=== PATIENT | male | born 1940 | race African-American/Black ===

== ENCOUNTER 2018-02-27 03:12 | Inpatient (IN) ==
[2018-02-27] MEDS ORDERED: Aspirin 325 MG Tablet PO ONE (03:57)
--- NOTE | 2018-02-27 04:02 | ED ---
HPI General Chief Complaint: Chest Pain Stated Complaint: Chest pain Time Seen by Provider: 02/27/18 03:51 Source: patient Mode of arrival: ambulatory Limitations: no limitations History of Present Illness HPI narrative: 77-year-old male patient with history of hypertension, high cholesterol, diabetes, presents to the ER today because of 1 day history of substernal chest pains which she currently rates at a 7 out of 10. He has been nauseous, throwing up twice. He feels like it is pressure-like. He does not know of any exacerbating alleviating factors. He has not had similar chest pain in the past. He denies any coughing, shortness of breath, fevers, diarrhea , abdominal pain, or any other symptoms. Complete Quality Measures for STEMI Alert Patients Related Data Home Medications Medication Instructions Recorded Confirmed Vitamin D3 1,000 unit PO DAILY 02/27/18 02/27/18 allopurinol 150 mg PO DAILY 02/27/18 02/27/18 amlodipine 10 mg PO DAILY 02/27/18 02/27/18 aspirin [Aspirin Low Dose] 81 mg PO EVERY OTHER DAY 02/27/18 02/27/18 calcitriol 0.25 mcg PO DAILY 02/27/18 02/27/18 doxazosin 4 mg PO DAILY 02/27/18 02/27/18 doxazosin 8 mg PO HS 02/27/18 02/27/18 finasteride 5 mg PO DAILY 02/27/18 02/27/18 furosemide 20 mg EVERY OTHER DAY 02/27/18 02/27/18 hydralazine 25 mg PO BID 02/27/18 02/27/18 insulin detemir U-100 [Levemir 12 unit SUB-Q QPM 02/27/18 02/27/18 U-100 Insulin] nateglinide 120 mg PO TID 02/27/18 02/27/18 nebivolol [Bystolic] 10 mg PO DAILY 02/27/18 02/27/18 pravastatin 20 mg PO HS 02/27/18 02/27/18 Allergies Allergy/AdvReac Type Severity Reaction Status Date / Time No Known Allergies Allergy Uncoded 04/09/14 20:25 Review of Systems ROS Unobtainable All other systems reviewed negative except as stated in HPI [facility] Medical History Medical History Diabetes (Acute) High cholesterol (Acute) Hypertension (Acute) Prostate cancer (Acute) Social History Social History Substance History: No History of Abuse Smoking Status: Never smoker How Often Do You Have a Drink Containing Alcohol: Never Recent Travel in [facility] within the Last 8 Weeks: No Recent Out of Country Travel within the Last 8 Weeks: No Immunization History Tetanus Immunization: Unable to Assess Hx Influenza Vaccine This Season: No Exam Narrative Exam Narrative: GENERAL: Well-developed elderly -[place]ian male patient currently in moderate distress distress. Awake and oriented 3. SKIN: Focused skin assessment warm/dry. HEAD: Atraumatic. Normocephalic. EYES: Pupils equal and round. No scleral icterus. No injection or drainage. ENT: No nasal bleeding or discharge. Mucous membranes pink and moist. NECK: Trachea midline. No JVD. CARDIOVASCULAR: Regular rate and rhythm. No murmur appreciated. RESPIRATORY: No accessory muscle use. Clear to auscultation. Breath sounds equal bilaterally. GASTROINTESTINAL: Abdomen soft, non-tender, nondistended. Hepatic and splenic margins not palpable. MUSCULOSKELETAL: No obvious deformities. No clubbing. No cyanosis. No edema. NEUROLOGICAL: Awake and alert. No obvious cranial nerve deficits. Motor grossly within normal limits. Normal speech. PSYCHIATRIC: Appropriate mood and affect; insight and judgment normal. Course Hospital Course: Patient's EKG did not show signs of acute ST changes. He has significant elevations in BUN and creatinine, troponin is mildly elevated as well, BNP is 1400 concerning for fluid overload. At this point, my plan would be to admit him for further treatment of his fluid overload. He was given nitroglycerin and aspirin in the ER with improvement in his chest discomfort. Case is discussed with Dr. Magaña for admission. Initial Documented Vital Signs Temperature 98.4 F 02/27/18 03:14 Pulse Rate 69 02/27/18 03:14 Respiratory Rate 18 02/27/18 03:14 Blood Pressure 159/74 H 02/27/18 03:14 Pulse Oximetry 98 02/27/18 03:14 Last Documented Vital Signs Temperature 98.8 F 02/27/18 03:18 Pulse Rate 64 02/27/18 04:07 Respiratory Rate 18 02/27/18 03:18 Blood Pressure 175/79 H 02/27/18 03:18 Pulse Oximetry 96 02/27/18 04:49 Medical Decision Making Lab Data Result diagrams: 02/27/18 03:50 02/27/18 03:50 Lab Results 02/27/18 02/27/18 02/27/18 Range/Units 03:50 03:50 03:50 WBC 6.1 (4.0-11.0) th/mm3 RBC 3.78 L (4.50-5.90) mil/mm3 Hgb 9.1 L (13.0-17.0) gm/dL Hct 28.5 L (39.0-51.0) % MCV 75.3 L (80.0-100.0) fL MCH 24.1 L (27.0-34.0) pg MCHC 32.0 (32.0-36.0) % RDW 18.7 H (11.6-17.2) % Plt Count 179 (150-450) th/mm3 MPV 11.1 H (7.0-11.0) fL Prelim Diff (Auto) Slide review pending Neut % (Auto) 77.6 H (16.0-70.0) % Lymph % (Auto) 12.1 (9.0-44.0) % [place] % (Auto) 8.6 H (0.0-8.0) % Eos % (Auto) 1.1 (0.0-4.0) % Baso % (Auto) 0.6 (0.0-2.0) % Neut # (Auto) 4.7 (1.8-7.7) th/mm3 Lymph # (Auto) 0.7 L (1.0-4.8) th/mm3 [place] # (Auto) 0.5 (0.0-0.9) th/mm3 Eos # (Auto) 0.1 (0.0-0.4) th/mm3 Baso # (Auto) 0.0 (0.0-0.2) th/mm3 WBC Differential . Diff Scan Auto diff confirmed Differential Comment . Platelet Estimate Normal (Normal) Platelet Morphology Normal (Normal) Ovalocytes 1+ H (None) Acanthocytes (Spur) 1+ H (None) Keratocytes Occ H (None) PT 10.9 (9.8-11.6) sec INR 1.1 Ratio APTT 23.2 L (24.3-30.1) sec Sodium (136-145) meq/L Potassium (3.5-5.1) meq/L Chloride (98-107) meq/L Carbon Dioxide (21.0-32.0) meq/L Anion Gap (5-15) meq/L BUN (7-18) mg/dL Creatinine (0.60-1.30) mg/dL Estimated GFR (>89) mL/min Random Glucose (74-106) mg/dL Calcium (8.5-10.1) mg/dL Magnesium (1.5-2.5) mg/dL Total Bilirubin (0.2-1.0) mg/dL AST (15-37) U/L ALT (12-78) U/L Alkaline Phosphatase (45-117) U/L Troponin I (0.02-0.05) ng/mL B-Natriuretic Peptide 1471 H (0-100) pg/mL Total Protein (6.4-8.2) g/dL Albumin (3.4-5.0) g/dL Lipase (73-393) U/L 02/27/18 Range/Units 03:50 WBC (4.0-11.0) th/mm3 RBC (4.50-5.90) mil/mm3 Hgb (13.0-17.0) gm/dL Hct (39.0-51.0) % MCV (80.0-100.0) fL MCH (27.0-34.0) pg MCHC (32.0-36.0) % RDW (11.6-17.2) % Plt Count (150-450) th/mm3 MPV (7.0-11.0) fL Prelim Diff (Auto) Neut % (Auto) (16.0-70.0) % Lymph % (Auto) (9.0-44.0) % [place] % (Auto) (0.0-8.0) % Eos % (Auto) (0.0-4.0) % Baso % (Auto) (0.0-2.0) % Neut # (Auto) (1.8-7.7) th/mm3 Lymph # (Auto) (1.0-4.8) th/mm3 [place] # (Auto) (0.0-0.9) th/mm3 Eos # (Auto) (0.0-0.4) th/mm3 Baso # (Auto) (0.0-0.2) th/mm3 WBC Differential Diff Scan Differential Comment Platelet Estimate (Normal) Platelet Morphology (Normal) Ovalocytes (None) Acanthocytes (Spur) (None) Keratocytes (None) PT (9.8-11.6) sec INR Ratio APTT (24.3-30.1) sec Sodium 142 (136-145) meq/L Potassium 4.5 (3.5-5.1) meq/L Chloride 109 H (98-107) meq/L Carbon Dioxide 19.2 L (21.0-32.0) meq/L Anion Gap 14 (5-15) meq/L BUN 76 H (7-18) mg/dL Creatinine 5.19 H (0.60-1.30) mg/dL Estimated GFR 13 L (>89) mL/min Random Glucose 127 H (74-106) mg/dL Calcium 8.4 L (8.5-10.1) mg/dL Magnesium 2.5 (1.5-2.5) mg/dL Total Bilirubin 0.4 (0.2-1.0) mg/dL AST 28 (15-37) U/L ALT 26 (12-78) U/L Alkaline Phosphatase 77 (45-117) U/L Troponin I 0.20 H (0.02-0.05) ng/mL B-Natriuretic Peptide (0-100) pg/mL Total Protein 7.5 (6.4-8.2) g/dL Albumin 3.2 L (3.4-5.0) g/dL Lipase 226 (73-393) U/L Imaging Data Radiologist's impression: ITS Impressions Chest X-Ray 02/27/18 03:57 CONCLUSION: Cardiomegaly with probable interstitial edema and small bilateral pleural effusions. No pneumothorax. Discharge Plan Discharge Disposition Patient Disposition: 30 Still Patient Discharge Details Discharge Problem: Acute renal failure, Elevated troponin, CHF (congestive heart failure) Physicians Team ED Provider: Carlos Rothman Primary Care Provider: Primary Care Physici,Priyanka Rxs /Orders / Referrals /Forms Prescriptions: No Action insulin detemir U-100 [Levemir U-100 Insulin] 100 unit/mL Solution 12 unit SUB-Q QPM RF: 0 nateglinide 120 mg Tablet 120 mg PO TID RF: 0 hydralazine 25 mg Tablet 25 mg PO BID RF: 0 aspirin [Aspirin Low Dose] 81 mg Tablet,Delayed Release (Dr/Ec) 81 mg PO EVERY OTHER DAY RF: 0 amlodipine 10 mg Tablet 10 mg PO DAILY RF: 0 doxazosin 4 mg Tablet 8 mg PO HS RF: 0 doxazosin 4 mg Tablet 4 mg PO DAILY RF: 0 allopurinol 300 mg Tablet 150 mg PO DAILY RF: 0 pravastatin 20 mg Tablet 20 mg PO HS RF: 0 furosemide 20 mg Tablet 20 mg EVERY OTHER DAY RF: 0 calcitriol 0.25 mcg Capsule 0.25 mcg PO DAILY RF: 0 finasteride 5 mg Tablet 5 mg PO DAILY RF: 0 nebivolol [Bystolic] 10 mg Tablet 10 mg PO DAILY RF: 0 Vitamin D3 1,000 unit PO DAILY RF: 0 Discharge Instructions Patient Printed Instructions: Chest Pain (ED) Discharge Interventions Interventions: Vital Signs Last Done: 02/27/18 03:18 Status ED Status: With Doctor
[2018-02-27 04:18] LABS: Baso % (Auto) 0.6 % (0.0-2.0); Eos # (Auto) 0.1 th/mm3 (0.0-0.4); Eos % (Auto) 1.1 % (0.0-4.0); Hematocrit 28.5 % (39.0-51.0); Hemoglobin 9.1 gm/dL (13.0-17.0); Lymph # (Auto) 0.7 th/mm3 (1.0-4.8); Lymph % (Auto) 12.1 % (9.0-44.0); Mean Corpuscular Hemoglobin 24.1 pg (27.0-34.0); Mean Corpuscular Volume 75.3 fL (80.0-100.0); Mean Platelet Volume 11.1 fL (7.0-11.0); Mono # (Auto) 0.5 th/mm3 (0.0-0.9); Mono % (Auto) 8.6 % (0.0-8.0); Neut # (Auto) 4.7 th/mm3 (1.8-7.7); Neut % (Auto) 77.6 % (16.0-70.0); Platelet Count 179 th/mm3 (150-450); Red Blood Count 3.78 mil/mm3 (4.50-5.90); Red Cell Distribution Width 18.7 % (11.6-17.2); White Blood Count 6.1 th/mm3 (4.0-11.0)
[2018-02-27 04:28] LABS: Activated Partial Thrombo Time 23.2 sec (24.3-30.1); INR 1.1 Ratio; Prothrombin Time 10.9 sec (9.8-11.6)
--- NOTE | 2018-02-27 04:35 | XR ---
EXAM DATE: 02/27/2018 4:32 AM EDT AGE/SEX: 77 years / Male INDICATIONS: Mid sternal pain radiating to left chest and arm. CLINICAL DATA: This is the patient's initial encounter. Patient reports that signs and symptoms have been present for 1 day and indicates a pain score of 8/10. MEDICAL/SURGICAL HISTORY: None. None. COMPARISON: No prior exams available for comparison. FINDINGS: Heart size enlarged. No focal consolidation. Small effusions. Interstitial prominence may represent m ild edema. CONCLUSION: Cardiomegaly with probable interstitial edema and small bilateral pleural effusions. No pneumothorax. Electronically signed by: Jose Carlos Patton MD 02/27/2018 4:34 AM EDT
[2018-02-27 04:47] LABS: Alkaline Phosphatase 77 U/L (45-117); Total Protein 7.5 g/dL (6.4-8.2)
[2018-02-27 04:55] LABS: Alanine Aminotransferase 26 U/L (12-78); Albumin 3.2 g/dL (3.4-5.0); Anion Gap 14 meq/L (5-15); Aspartate Aminotransferase 28 U/L (15-37); Blood Urea Nitrogen 76 mg/dL (7-18); Calcium 8.4 mg/dL (8.5-10.1); Carbon Dioxide 19.2 meq/L (21.0-32.0); Chloride 109 meq/L (98-107); Glomerular Filtration Rate 13 mL/min (>89); Glucose,Random 127 mg/dL (74-106); Lipase 226 U/L (73-393); Magnesium 2.5 mg/dL (1.5-2.5); Sodium 142 meq/L (136-145)
[2018-02-27 05:04] LABS: Potassium 4.5 meq/L (3.5-5.1)
[2018-02-27 05:24] LABS: Acanthocytes 1+
[2018-02-27 05:25] LABS: Ovalocytes 1+; Platelet Estimate Normal (Normal); Platelet Morphology Normal (Normal)
[2018-02-27] MEDS ORDERED: Acetaminophen 500 MG Tablet PO PRN (06:04)
[2018-02-27] MEDS ORDERED: Morphine Inj 4 MG/ML Vial IV.PUSH PRN (06:04)
[2018-02-27] MEDS: Heparin - SQ 10,000 UNITS/ML Vial SQ SCH ×2 (06:28→14:21)
[2018-02-27] MEDS: Aspirin 325 MG Tablet PO SCH (12:42)
[2018-02-27 13:08] LABS: % Iron Saturation 20.8 % (20-50)
--- NOTE | 2018-02-27 13:14 | P.HP ---
History of Present Illness Primary Care Physician: Dr. Varner Chief Complaint: leg swelling, shortness of breath, with chest pain History of Present Illness: patient is a 77 years old male with known history of DM type 2 insulin requirinf, Nephropathy, hypertesnion, nhyperlipdemia, CHF who woke up from sleep this 2 am with left sided chest pain- described as pressure like lasted till he arrived to ER- - patient was given ASa, SL NTG, and topical nitrates and IV Morphine with relief. Per patient increase shortness of bfrreath for past few days and leg swelling in past 1 week , He was On lasix 20 mg daily as OP and this was decreased to every other day about 4 weeks ago by nephrology becausee his creatinine was increasing as OP. - last creatinine was 4.6 then Denies any fever or chills, states still voiding with no difficulties, mikayla any diarrhea, baseline 2 pillow orthopnea. Now is chest pain free, appears comfortable, on exam with Leg swelling and few bibasal rales - Diagnosis (1) Acute renal failure (2) CHF (congestive heart failure) (3) NSTEMI (non-ST elevated myocardial infarction) (4) DM II (diabetes mellitus, type II), controlled - Inpatient Certification If this patient has been admitted as an Inpatient: I certify that the inpatient services were ordered in accordance with Medicare regulations governing the order. This includes certification that hospital inpatient services are reasonable and necessary and in the case of services not specified as inpatient-only under 42 CFR 419.22(n), that they are appropriately provided as inpatient services in accordance to with the 2-midnight benchmark under 43 CFR 412.3(e) Estimated Total Length of Stay (Days): 2 Plans for Post Hospital Care: Not yet determined Review of Systems All other systems reviewed negative except as stated in HPI PMFSH - History History Provided By: Patient, Family Member - Medical History Medical History: Medical History (Last Updated 02/27/18 @ 13:40 by Tahmina Miranda MD) Chronic renal insufficiency, stage III (moderate) Diabetes High cholesterol Hypertension Prostate cancer - Family History Family History: Family History (Last Updated 02/27/18 @ 13:40 by Tahmina Miranda MD) Other Family history of cancer - Tobacco History Smoking Status: Never smoker - Alcohol History How Often Do You Have a Drink Containing Alcohol: Never - Substance Use History Substance History: No History of Abuse - Travel History Recent Travel in the [place] Within the Last 8 Weeks: No Recent Travel Out of the Country Within the Last 8 Weeks: No - Immunization History Tetanus Immunization: Unable to Assess Hx Influenza Vaccine This Season: No Medications and Allergies Active Medications: Active Medications Acetaminophen (Tylenol) 500 mg PO Q4H PRN PRN Reason: HEADACHE Hydrocodone Bitart/Acetaminophen (Stark 7.5/325) 1 tab PO Q4H PRN PRN Reason: PAIN SCALE 1 TO 5 Aspirin (Aspirin) 325 mg PO DAILY [facility] Last Admin: 02/27/18 12:42 Dose: 325 mg Bumetanide (Bumex Inj) 2 mg IV.PUSH ONCE ONE Stop: 02/27/18 13:11 Heparin Sodium (Porcine) (Heparin Inj) 5,000 units SQ Q8H [facility] Last Admin: 02/27/18 06:28 Dose: 5,000 units Morphine Sulfate (Morphine Inj) 2 mg IV.PUSH Q5M PRN PRN Reason: PAIN SCALE 6 TO 10 Pantoprazole Sodium (Protonix) 40 mg PO DAILY [facility] Last Admin: 02/27/18 12:43 Dose: 40 mg Sodium Chloride (Ns Flush) 2 ml IV.FLUSH UNSCH PRN PRN Reason: FLUSH AFTER USING IV ACCESS Sodium Chloride (Ns Flush) 2 ml IV.FLUSH BID [facility] Last Admin: 02/27/18 12:43 Dose: 2 ml Sodium Chloride (Ns Flush) 2 ml IV.FLUSH PRN PRN PRN Reason: FLUSH AFTER USING IV ACCESS Allergies Allergy/AdvReac Type Severity Reaction Status Date / Time No Known Allergies Allergy Verified 03/01/18 06:38 Home Medications Medication Instructions Recorded Confirmed Type Vitamin D3 1,000 unit PO DAILY 02/27/18 02/27/18 History allopurinol 150 mg PO DAILY 02/27/18 02/27/18 History amlodipine 10 mg PO DAILY 02/27/18 02/27/18 History aspirin [Aspirin Low Dose] 81 mg PO EVERY OTHER DAY 02/27/18 02/27/18 History calcitriol 0.25 mcg PO DAILY 02/27/18 02/27/18 History doxazosin 4 mg PO DAILY 02/27/18 02/27/18 History doxazosin 8 mg PO HS 02/27/18 02/27/18 History finasteride 5 mg PO DAILY 02/27/18 02/27/18 History hydralazine 25 mg PO BID 02/27/18 02/27/18 History insulin detemir U-100 [Levemir 12 unit SUB-Q QPM 02/27/18 02/27/18 History U-100 Insulin] nateglinide 120 mg PO TID 02/27/18 02/27/18 History Exam Vital signs: Vital Signs 02/27/18 03:14 02/27/18 03:18 02/27/18 04:07 Temperature 98.4 F 98.8 F Pulse Rate 69 85 64 Respiratory Rate 18 18 Blood Pressure 159/74 H 175/79 H Pulse Oximetry 98 96 96 02/27/18 04:49 02/27/18 06:24 02/27/18 07:09 Temperature Pulse Rate 62 66 Respiratory Rate 18 19 Blood Pressure 170/78 H 170/78 H Pulse Oximetry 96 95 96 02/27/18 09:06 02/27/18 09:34 02/27/18 10:15 Temperature 98 F Pulse Rate 66 62 Respiratory Rate 17 20 Blood Pressure 166/77 H 166/77 H 172/79 H Pulse Oximetry 96 96 Intake & Output 02/26/18 02/27/18 02/27/18 18:59 06:59 18:59 Weight 83.915 kg - Constitutional no acute distress - Routine HEENT Exam Head: Present: normocephalic Eye: Present: EOMI, conjunctivae pink ENT: Present: mucous membranes moist, oropharynx clear - Routine Neck Exam Present: supple, full ROM, carotid bruit (no bruit) - Routine Respiratory Exam Present: rales (few basal rales, no wheezes) - Routine Cardiovascular Exam Present: RRR (no murmur) - Routine Abdominal Exam Present: soft, normoactive bowel sounds - Routine Extremities Exam Present: edema (+leg and feet edema) - Routine Skin Exam Present: intact - Routine Neurological Exam Present: alert, oriented X3, CN II-XII intact (motor 5/5 all extremities) Results - Labs CBC & Chem 7: 03/01/18 05:34 03/01/18 05:34 Labs: Laboratory Results - last 24 hr 02/27/18 02/27/18 02/27/18 03:50 03:50 03:50 WBC 6.1 RBC 3.78 L Hgb 9.1 L Hct 28.5 L MCV 75.3 L MCH 24.1 L MCHC 32.0 RDW 18.7 H Plt Count 179 MPV 11.1 H Prelim Diff (Auto) Slide review pending Neut % (Auto) 77.6 H Lymph % (Auto) 12.1 [place] % (Auto) 8.6 H Eos % (Auto) 1.1 Baso % (Auto) 0.6 Neut # (Auto) 4.7 Lymph # (Auto) 0.7 L [place] # (Auto) 0.5 Eos # (Auto) 0.1 Baso # (Auto) 0.0 WBC Differential . Diff Scan Auto diff confirmed Differential Comment . Platelet Estimate Normal Platelet Morphology Normal Ovalocytes 1+ H Acanthocytes (Spur) 1+ H Keratocytes Occ H PT 10.9 INR 1.1 APTT 23.2 L Sodium Potassium Chloride Carbon Dioxide Anion Gap BUN Creatinine Estimated GFR POC Glucose Random Glucose Calcium Magnesium Iron TIBC % Saturation Ferritin Total Bilirubin AST ALT Alkaline Phosphatase Troponin I B-Natriuretic Peptide 1471 H Total Protein Albumin Lipase 02/27/18 02/27/18 02/27/18 03:50 03:50 09:57 WBC RBC Hgb Hct MCV MCH MCHC RDW Plt Count MPV Prelim Diff (Auto) Neut % (Auto) Lymph % (Auto) [place] % (Auto) Eos % (Auto) Baso % (Auto) Neut # (Auto) Lymph # (Auto) [place] # (Auto) Eos # (Auto) Baso # (Auto) WBC Differential Diff Scan Differential Comment Platelet Estimate Platelet Morphology Ovalocytes Acanthocytes (Spur) Keratocytes PT INR APTT Sodium 142 Potassium 4.5 Chloride 109 H Carbon Dioxide 19.2 L Anion Gap 14 BUN 76 H Creatinine 5.19 H Estimated GFR 13 L POC Glucose 152 H Random Glucose 127 H Calcium 8.4 L Magnesium 2.5 Iron 44 L TIBC 211 L % Saturation 20.8 Ferritin 151 Total Bilirubin 0.4 AST 28 ALT 26 Alkaline Phosphatase 77 Troponin I 0.20 H B-Natriuretic Peptide Total Protein 7.5 Albumin 3.2 L Lipase 226 - Imaging Impressions Chest X-Ray 02/27/18 03:57 CONCLUSION: Cardiomegaly with probable interstitial edema and small bilateral pleural effusions. No pneumothorax. Caprini VTE Risk Assessment Caprini VTE Risk Assessment: Moderate/High Risk (score >= 2) Caprini Risk Assessment Model: Point Value = 1 Point Value = 2 Point Value = 3 Point Value = 5 Age 41-60 Minor surgery BMI > 25 kg/m2 Swollen legs Varicose veins or History of unexplained or recurrent spontaneous Oral contraceptives or hormone replacement Sepsis (< 1 month) Serious lung disease, including pneumonia (< 1 month) Abnormal pulmonary function Acute myocardial infarction Congestive heart failure (< 1 month) History of inflammatory bowel disease Medical patient at bed rest Age 61-74 Arthroscopic surgery Major open surgery (> 45 min) Laparoscopic surgery (> 45 min) Malignancy Confined to bed (> 72 hours) Immobilizing plaster cast Central venous access Age >= 75 History of VTE Family history of VTE Factor V Leiden Prothrombin [id number] Lupus anticoagulant Anticardiolipin antibodies Elevated serum homocysteine Heparin-induced thrombocytopenia Other congenital or acquired thrombophilia Stroke (< 1 month) Elective arthroplasty Hip, pelvis, or leg fracture Acute spinal cord injury (< 1 month) Prophylaxis Regimen: Total Risk Factor Score Risk Level Prophylaxis Regimen 0-1 Low Early ambulation 2 Moderate Order ONE of the following: *Sequential Compression Device (SCD) *Heparin 5000 units SQ BID 3-4 Higher Order ONE of the following medications: *Heparin 5000 units SQ TID *Enoxaparin/Lovenox 40 mg SQ daily (WT < 150 kg, CrCl > 30 mL/min) *Enoxaparin/Lovenox 30 mg SQ daily (WT < 150 kg, CrCl > 10-29 mL/min) *Enoxaparin/Lovenox 30 mg SQ BID (WT < 150 kg, CrCl > 30 mL/min) AND/OR *Sequential Compression Device (SCD) 5 or more Highest Order ONE of the following medications: *Heparin 5000 units SQ TID (Preferred with Epidurals) *Enoxaparin/Lovenox 40 mg SQ daily (WT < 150 kg, CrCl > 30 mL/min) *Enoxaparin/Lovenox 30 mg SQ daily (WT < 150 kg, CrCl > 10-29 mL/min) *Enoxaparin/Lovenox 30 mg SQ BID (WT < 150 kg, CrCl > 30 mL/min) AND *Sequential Compression Device (SCD) Assessment and Plan - Assessment (1) Acute renal failure Code(s): N17.9 - Acute kidney failure, unspecified Status: Acute (2) CHF (congestive heart failure) Code(s): I50.9 - Heart failure, unspecified Status: Acute (3) NSTEMI (non-ST elevated myocardial infarction) Code(s): I21.4 - Non-ST elevation (NSTEMI) myocardial infarction Status: Acute (4) DM II (diabetes mellitus, type II), controlled Code(s): E11.9 - Type 2 diabetes mellitus without complications Status: Chronic - Plan 77 years old male preented with Acute chest pain and shortness of breath- feeling better NSTEMI - troponin first set indeterminate 0.20 Acute CHF- from worsening renal functions Hypertension - trend troponin- if continues to increase - cardiology consult - Give Bumex 2 mg IV x 1 now then restart Lasix 20 mg daily in am with monitoring of renal fucntions in am - initial 12 LEKG shows no acute changes - get a 2D echo, check troponins as above - Amlodipine 10 mg tab daily, Hydralazine 25 mg bid, Bystolic 5 mg daily, vit D , Cardura - ASA daily , statins Acute Kidney injury likely with underlying CKI from Diabetic/hypertensive nephropathy - Nephrology consult - DM type 2, insulin requiring - sliding scale Gout- continue Allopurinol HLP- continue statins Anemia- likely of chronic renal disease - review old CBC- H and H near baseline - check iron studies - PPI once daily d/w patient and continue home meds Heparin SQ q 8 for DVT prophylaxis pm ADD: troponin 40. change BB to Lopressor 25 mg po q 8. Nitrol paste q 6 Cardiology consult change SQ heparin to heparin drip protocol Code Status: full Discussed Condition With: patient Discharge Planning: work up in progress (4) DM II (diabetes mellitus, type II), controlled Qualifiers: Diabetes mellitus buttermaker insulin use: with buttermaker use Chronic kidney disease stage: stage 5, not on chronic dialysis
--- NOTE | 2018-02-27 14:23 | MB ---
cc: Darnell Callahan MD DATE: 02/27/2018 REASON FOR CONSULTATION: Very high BUN and creatinine, for evaluation. HISTORY OF PRESENT ILLNESS: This is a 77-year-old male with past medical history of hypertension, diabetes mellitus, chronic kidney disease, hyperlipidemia, congestive heart failure, came to the hospital complaining of chest pain. I was called to see the patient because of elevated BUN and creatinine. The patient has a known history of chronic kidney disease. He has been following with Dr. Obinna Fiore and according to the , he was seen by him about 3-4 weeks ago, and at that time, his creatinine was 4.6. The patient now admitted here with a creatinine of 5.1. He started having this chest pain while he was sleeping at night and woke up around 2 a.m. The chest pain was mainly retrosternal and it improved when he came to the hospital, he was given some medication. He denies any nausea, vomiting. There was no shortness of breath. No palpitations. He did not have any chest pain since he came in here. He denies any history of dysuria, hematuria, not taking any nonsteroidal anti-inflammatory drugs. According to him, when he was seen by Dr. Obinna Fiore about 3-4 weeks ago, he was told that he will need dialysis at some point, but there is no urgent need. PAST MEDICAL HISTORY: Hypertension, diabetes mellitus, hyperlipidemia, history of prostate cancer, stage IV chronic kidney disease. REVIEW OF SYSTEMS: Denies any headache, dizziness. There is no history of fever. He has retrosternal chest pain, but is improved now. There is no shortness of breath. No nausea, vomiting. No history of diarrhea. No dysuria, hematuria, difficulty passing urine. SOCIAL HISTORY: The patient is . He has no history of smoking or alcoholism. FAMILY HISTORY: Noncontributory. ALLERGIES: HE HAS NO KNOWN DRUG ALLERGIES. MEDICATIONS: Currently, he is on following medications: 1. Tylenol p.r.n. 2. [place] p.r.n. 3. Aspirin 325 mg once a day. 4. Bumex 1 dose was given 2 mg. 5. IV Morphine. 6. Protonix 40 mg daily. 7. Zofran as needed. PHYSICAL EXAMINATION: GENERAL: Awake, alert. He is not in acute distress. VITAL SIGNS: Last blood pressure is 170/78, temperature is 98, oxygen saturation on room air is 95-96%. HEENT: Pupils are mid constricted. Nonicteric sclerae. Conjunctivae pale. NECK: Supple. JVD is not elevated. LUNGS: The patient has bilateral good air entry with occasional wheezing. HEART: S1, S2. Regular rate and rhythm. ABDOMEN: Soft and lax. There is no tenderness. Bowel sounds positive. EXTREMITIES: There is no pedal edema. LABORATORY DATA: WBC count is 6.1, hemoglobin 9.1, platelet count of 179, neutrophils 77.6%. INR is 1.1. Sodium 142, potassium 4.5, chloride 109, bicarbonate 19.2, BUN 76, creatinine 5.1, glucose 152, calcium 8.4, magnesium 2.4. Iron saturation is 20.8%. AST is 28, ALT is 26. Troponin 0.2. BNP is 1471. Total protein is 7.5, albumin is 3.2, lipase 226. ASSESSMENT AND PLAN: 1. Stage IV chronic kidney disease with some acute worsening. 2. Chest pain, rule out cardiac ischemia. 3. Hypertension. 4. Diabetes mellitus. 5. History of prostate cancer. 6. Hyperlipidemia. The patient has slightly elevated troponin of 0.2. He has advanced stage IV renal disease and there is some acute worsening, most likely has underlying hypertensive or diabetic nephropathy and the acute worsening could be related to cardiorenal syndrome. He has cardiomegaly and interstitial edema with bilateral pleural effusion. The patient got 1 dose of Bumex. Since patient has advanced renal disease, it is possible that he is approaching now end-stage and will need dialysis soon. We will need to see how much improvement he has with stabilization of his heart. There is no acute urgent need for dialysis at present. At present his potassium is normal and he is not uremic and he is passing urine. Avoid any nephrotoxins. Follow the renal function and Dr. Villalpando will follow the patient from tomorrow. Lakhwinder Callahan MD AQJ/TL , 01:50 PM , 02:21 PM
[2018-02-27 15:15] LABS: Creatine Kinase MB 43.8 ng/mL (0.5-3.6)
[2018-02-27 15:22] LABS: CKMB Percent 7.7 % (0.0-4.0)
--- NOTE | 2018-02-27 18:53 | P.PN ---
Subjective Interval history: NOT SEEN Physical Exam Vital signs: Vital Signs 02/27/18 03:14 02/27/18 03:18 02/27/18 04:07 Temperature 98.4 F 98.8 F Pulse Rate 69 85 64 Respiratory Rate 18 18 Blood Pressure 159/74 H 175/79 H Pulse Oximetry 98 96 96 02/27/18 04:49 02/27/18 06:24 02/27/18 07:09 Temperature Pulse Rate 62 66 Respiratory Rate 18 19 Blood Pressure 170/78 H 170/78 H Pulse Oximetry 96 95 96 02/27/18 09:06 02/27/18 09:34 02/27/18 10:15 Temperature 98 F Pulse Rate 66 62 Respiratory Rate 17 20 Blood Pressure 166/77 H 166/77 H 172/79 H Pulse Oximetry 96 96 02/27/18 12:00 Temperature 98 F Pulse Rate 65 Respiratory Rate 21 Blood Pressure 188/86 H Pulse Oximetry 97 Intake & Output 02/26/18 02/27/18 02/27/18 18:59 06:59 18:59 Weight 83.915 kg Narrative: - Constitutional no acute distress - Routine HEENT Exam Head: Present: normocephalic Eye: Present: EOMI, conjunctivae pink ENT: Present: mucous membranes moist, oropharynx clear - Routine Neck Exam Present: supple, full ROM, carotid bruit (no bruit) - Routine Respiratory Exam Present: rales (few basal rales, no wheezes) - Routine Cardiovascular Exam Present: RRR (no murmur) - Routine Abdominal Exam Present: soft, normoactive bowel sounds - Routine Extremities Exam Present: edema (+leg and feet edema) - Routine Skin Exam Present: intact - Routine Neurological Exam Present: alert, oriented X3, CN II-XII intact (motor 5/5 all extremities) Results - Labs CBC & Chem 7: 02/27/18 03:50 02/27/18 03:50 Laboratory Results - last 24 hr 02/27/18 02/27/18 02/27/18 03:50 03:50 03:50 WBC 6.1 RBC 3.78 L Hgb 9.1 L Hct 28.5 L MCV 75.3 L MCH 24.1 L MCHC 32.0 RDW 18.7 H Plt Count 179 MPV 11.1 H Prelim Diff (Auto) Slide review pending Neut % (Auto) 77.6 H Lymph % (Auto) 12.1 [place] % (Auto) 8.6 H Eos % (Auto) 1.1 Baso % (Auto) 0.6 Neut # (Auto) 4.7 Lymph # (Auto) 0.7 L [place] # (Auto) 0.5 Eos # (Auto) 0.1 Baso # (Auto) 0.0 WBC Differential . Diff Scan Auto diff confirmed Differential Comment . Platelet Estimate Normal Platelet Morphology Normal Ovalocytes 1+ H Acanthocytes (Spur) 1+ H Keratocytes Occ H PT 10.9 INR 1.1 APTT 23.2 L Sodium Potassium Chloride Carbon Dioxide Anion Gap BUN Creatinine Estimated GFR POC Glucose Random Glucose Calcium Magnesium Iron TIBC % Saturation Ferritin Total Bilirubin AST ALT Alkaline Phosphatase Total Creatine Kinase CK-MB (CK-2) CK-MB (CK-2) % Troponin I B-Natriuretic Peptide 1471 H Total Protein Albumin Lipase 02/27/18 02/27/18 02/27/18 03:50 03:50 09:57 WBC RBC Hgb Hct MCV MCH MCHC RDW Plt Count MPV Prelim Diff (Auto) Neut % (Auto) Lymph % (Auto) [place] % (Auto) Eos % (Auto) Baso % (Auto) Neut # (Auto) Lymph # (Auto) [place] # (Auto) Eos # (Auto) Baso # (Auto) WBC Differential Diff Scan Differential Comment Platelet Estimate Platelet Morphology Ovalocytes Acanthocytes (Spur) Keratocytes PT INR APTT Sodium 142 Potassium 4.5 Chloride 109 H Carbon Dioxide 19.2 L Anion Gap 14 BUN 76 H Creatinine 5.19 H Estimated GFR 13 L POC Glucose 152 H Random Glucose 127 H Calcium 8.4 L Magnesium 2.5 Iron 44 L TIBC 211 L % Saturation 20.8 Ferritin 151 Total Bilirubin 0.4 AST 28 ALT 26 Alkaline Phosphatase 77 Total Creatine Kinase CK-MB (CK-2) CK-MB (CK-2) % Troponin I 0.20 H B-Natriuretic Peptide Total Protein 7.5 Albumin 3.2 L Lipase 226 02/27/18 02/27/18 12:55 12:55 WBC RBC Hgb Hct MCV MCH MCHC RDW Plt Count MPV Prelim Diff (Auto) Neut % (Auto) Lymph % (Auto) [place] % (Auto) Eos % (Auto) Baso % (Auto) Neut # (Auto) Lymph # (Auto) [place] # (Auto) Eos # (Auto) Baso # (Auto) WBC Differential Diff Scan Differential Comment Platelet Estimate Platelet Morphology Ovalocytes Acanthocytes (Spur) Keratocytes PT INR APTT Sodium Potassium Chloride Carbon Dioxide Anion Gap BUN Creatinine Estimated GFR POC Glucose Random Glucose Calcium Magnesium Iron TIBC % Saturation Ferritin Total Bilirubin AST ALT Alkaline Phosphatase Total Creatine Kinase 572 H CK-MB (CK-2) 43.8 H CK-MB (CK-2) % 7.7 H* Troponin I Greater than 40.00 H* B-Natriuretic Peptide Total Protein Albumin Lipase - Imaging Impressions Chest X-Ray 02/27/18 03:57 CONCLUSION: Cardiomegaly with probable interstitial edema and small bilateral pleural effusions. No pneumothorax. 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
[2018-02-27] MEDS ORDERED: Dextrose 50% in Water 50 ML Vial IV.PUSH PRN (19:01)
[2018-02-27] MEDS: Metoprolol Tartrate 25 MG Tablet PO SCH (19:24)
[2018-02-27] MEDS ORDERED: Heparin 10,000 UNITS/10 ML Vial (for IV use) IV.PUSH STA (20:49)
[2018-02-27] MEDS: Heparin Drip 25,000 UNIT/250 ML BAG IV.CONT PRN (22:00)
[2018-02-27] MEDS: Doxazosin 4 MG Tablet PO SCH (22:04)
[2018-02-27] MEDS: hydrALAZINE 25 MG Tablet PO SCH (22:05)
[2018-02-27] MEDS: Insulin NovoLOG Aspart Correctional Sugar Inj SQ SCH (23:10)
[2018-02-27] MEDS: amLODIPine 10 MG Tablet PO SCH (23:10)
--- NOTE | 2018-02-28 00:10 | ECG ---
Date Performed: 02/27/2018 Time Performed: 03:25:25 PTAGE: 77 years EKG: Sinus rhythm BORDERLINE LEFT AXIS DEVIATION NONSPECIFIC ST & T-WAVE ABNORMALITY BORDERLINE ECG PREVIOUS TRACING : 06/29/2015 02.23 Since the previous tracing, no significant change noted DOCTOR: Chris Higgins Interpretating Date/Time 02/28/2018 00:09:41
[2018-02-28] MEDS: Heparin Drip 25,000 UNIT/250 ML BAG IV.CONT PRN (06:44)
[2018-02-28 07:03] LABS: Baso % (Auto) 0.3 % (0.0-2.0); Eos % (Auto) 0.4 % (0.0-4.0); Hematocrit 26.3 % (39.0-51.0); Hemoglobin 8.6 gm/dL (13.0-17.0); Lymph # (Auto) 0.6 th/mm3 (1.0-4.8); Lymph % (Auto) 9.1 % (9.0-44.0); Mean Corpuscular HGB Conc 32.8 % (32.0-36.0); Mean Corpuscular Hemoglobin 24.6 pg (27.0-34.0); Mono # (Auto) 0.5 th/mm3 (0.0-0.9); Mono % (Auto) 8.1 % (0.0-8.0); Neut # (Auto) 5.1 th/mm3 (1.8-7.7); Neut % (Auto) 82.1 % (16.0-70.0); Platelet Count 168 th/mm3 (150-450); Red Cell Distribution Width 18.4 % (11.6-17.2); White Blood Count 6.2 th/mm3 (4.0-11.0)
[2018-02-28 07:40] LABS: Calcium 8.4 mg/dL (8.5-10.1); Potassium 4.1 meq/L (3.5-5.1)
[2018-02-28 07:43] LABS: Chol/HDL Ratio 1.84 Ratio; HDL Cholesterol 65.7 mg/dL (40.0-60.0)
[2018-02-28] MEDS: Insulin NovoLOG Aspart Correctional Sugar Inj SQ SCH ×4 (08:00→21:01)
[2018-02-28] MEDS: Aspirin 325 MG Tablet PO SCH (08:48)
[2018-02-28] MEDS: amLODIPine 10 MG Tablet PO SCH (08:49)
[2018-02-28] MEDS: Calcitriol 0.25 MCG Capsule PO SCH (08:49)
[2018-02-28] MEDS: hydrALAZINE 25 MG Tablet PO SCH ×2 (08:49→21:00)
[2018-02-28] MEDS: Allopurinol 100 MG Tablet PO SCH (08:49)
[2018-02-28] MEDS: Finasteride 5 MG Tablet PO SCH (08:49)
[2018-02-28] MEDS: Metoprolol Tartrate 25 MG Tablet PO SCH ×3 (08:50→17:48)
[2018-02-28] MEDS: Doxazosin 4 MG Tablet PO SCH ×2 (08:50→21:03)
--- NOTE | 2018-02-28 08:56 | P.PN ---
Subjective Interval history: Follow-up [place]. Troponin peaked to over 40. Started on heparin drip. Denies chest pain agrees to proceed with left heart catheterization aware rates of worsening renal failure requiring hemodialysis. Seen with eldest daughter Alana Physical Exam Vital signs: Vital Signs 02/27/18 09:06 02/27/18 09:34 02/27/18 10:15 Temperature 98 F Pulse Rate 66 62 Respiratory Rate 17 20 Blood Pressure 166/77 H 166/77 H 172/79 H Pulse Oximetry 96 96 02/27/18 12:00 02/27/18 19:00 02/27/18 19:18 Temperature 98 F 98.2 F Pulse Rate 65 69 65 Respiratory Rate 21 18 Blood Pressure 188/86 H 170/82 H Pulse Oximetry 97 97 02/27/18 20:00 02/27/18 21:00 02/27/18 22:00 Temperature 98.8 F Pulse Rate 68 68 76 Respiratory Rate 16 Blood Pressure 159/84 H Pulse Oximetry 93 L 02/27/18 23:00 02/28/18 00:00 02/28/18 01:00 Temperature Pulse Rate 70 68 64 Respiratory Rate Blood Pressure Pulse Oximetry 02/28/18 02:00 02/28/18 03:00 02/28/18 04:00 Temperature Pulse Rate 64 66 64 Respiratory Rate 16 Blood Pressure 152/84 H Pulse Oximetry 96 Intake & Output 02/27/18 02/28/18 02/28/18 18:59 06:59 18:59 Intake Total 240 / 240 Output Total 600 / 600 Balance -360 / -360 Weight 83.7 kg Intake: Oral 240 / 240 Output: Urine 600 / 600 Other: Weight On Admission 84 kg Narrative: - Constitutional no acute distress - Routine HEENT Exam Head: Present: normocephalic Eye: Present: EOMI, conjunctivae pink ENT: Present: mucous membranes moist, oropharynx clear - Routine Neck Exam Present: supple, full ROM, carotid bruit (no bruit) - Routine Respiratory Exam Present: rales (few basal rales, no wheezes) - Routine Cardiovascular Exam Present: RRR (no murmur) - Routine Abdominal Exam Present: soft, normoactive bowel sounds - Routine Extremities Exam Present: edema (+leg and feet edema) - Routine Skin Exam Present: intact - Routine Neurological Exam Present: alert, oriented X3, CN II-XII intact (motor 5/5 all extremities) Results - Labs CBC & Chem 7: 02/28/18 04:57 02/28/18 04:57 Laboratory Results - last 24 hr 02/27/18 02/27/18 02/27/18 03:50 09:57 12:55 WBC RBC Hgb Hct MCV MCH MCHC RDW Plt Count MPV Neut % (Auto) Lymph % (Auto) [place] % (Auto) Eos % (Auto) Baso % (Auto) Neut # (Auto) Lymph # (Auto) [place] # (Auto) Eos # (Auto) Baso # (Auto) WBC Differential Differential Comment APTT Sodium Potassium Chloride Carbon Dioxide Anion Gap BUN Creatinine Estimated GFR POC Glucose 152 H Random Glucose Calcium Iron 44 L TIBC 211 L % Saturation 20.8 Ferritin 151 Total Creatine Kinase CK-MB (CK-2) CK-MB (CK-2) % Troponin I Greater than 40.00 H* Triglycerides Cholesterol LDL Cholesterol, Calc HDL Cholesterol Cholesterol/HDL Ratio 02/27/18 02/27/18 02/27/18 12:55 21:03 23:05 WBC RBC Hgb Hct MCV MCH MCHC RDW Plt Count MPV Neut % (Auto) Lymph % (Auto) [place] % (Auto) Eos % (Auto) Baso % (Auto) Neut # (Auto) Lymph # (Auto) [place] # (Auto) Eos # (Auto) Baso # (Auto) WBC Differential Differential Comment APTT Sodium Potassium Chloride Carbon Dioxide Anion Gap BUN Creatinine Estimated GFR POC Glucose 147 H Random Glucose Calcium Iron TIBC % Saturation Ferritin Total Creatine Kinase 572 H CK-MB (CK-2) 43.8 H CK-MB (CK-2) % 7.7 H* Troponin I 27.20 H* Triglycerides Cholesterol LDL Cholesterol, Calc HDL Cholesterol Cholesterol/HDL Ratio 02/28/18 02/28/18 02/28/18 04:57 04:57 04:57 WBC 6.2 RBC 3.50 L Hgb 8.6 L Hct 26.3 L MCV 75.0 L MCH 24.6 L MCHC 32.8 RDW 18.4 H Plt Count 168 MPV 11.0 Neut % (Auto) 82.1 H Lymph % (Auto) 9.1 [place] % (Auto) 8.1 H Eos % (Auto) 0.4 Baso % (Auto) 0.3 Neut # (Auto) 5.1 Lymph # (Auto) 0.6 L [place] # (Auto) 0.5 Eos # (Auto) 0.0 Baso # (Auto) 0.0 WBC Differential . Differential Comment Auto diff final APTT 69.0 H D Sodium 143 Potassium 4.1 Chloride 109 H Carbon Dioxide 22.0 Anion Gap 12 BUN 72 H Creatinine 5.10 H Estimated GFR 13 L POC Glucose Random Glucose 138 H Calcium 8.4 L Iron TIBC % Saturation Ferritin Total Creatine Kinase CK-MB (CK-2) CK-MB (CK-2) % Troponin I Triglycerides 39 L Cholesterol 121 LDL Cholesterol, Calc 48 HDL Cholesterol 65.7 H Cholesterol/HDL Ratio 1.84 02/28/18 08:27 WBC RBC Hgb Hct MCV MCH MCHC RDW Plt Count MPV Neut % (Auto) Lymph % (Auto) [place] % (Auto) Eos % (Auto) Baso % (Auto) Neut # (Auto) Lymph # (Auto) [place] # (Auto) Eos # (Auto) Baso # (Auto) WBC Differential Differential Comment APTT Sodium Potassium Chloride Carbon Dioxide Anion Gap BUN Creatinine Estimated GFR POC Glucose 132 H Random Glucose Calcium Iron TIBC % Saturation Ferritin Total Creatine Kinase CK-MB (CK-2) CK-MB (CK-2) % Troponin I Triglycerides Cholesterol LDL Cholesterol, Calc HDL Cholesterol Cholesterol/HDL Ratio - Imaging ITS Impressions Chest X-Ray 02/27/18 03:57 CONCLUSION: Cardiomegaly with probable interstitial edema and small bilateral pleural effusions. No pneumothorax. 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
[2018-02-28] MEDS ORDERED: Allopurinol 300 MG Tablet PO SCH (09:00)
--- NOTE | 2018-02-28 09:49 | P.CONCA ---
<Gabriel Diaz - Last Filed: 02/28/18 09:43> History of Present Illness Primary Care Provider: No Primary Care Physician Family Provider: Scott Varner MD Chief Complaint: leg swelling, shortness of breath, with chest pain History of Present Illness: 77-year-old male with a past medical history of HTN, HLD, DM, CKD stage V who presented for chest pain. Yesterday evening the patient was awoken from sleep with substernal chest pressure with associated nausea. No prior episodes of chest pain or heart disease in the past. He came to the ED for evaluation and EKGs have not revealed any ischemic changes. His initial troponin was 0.2 which elevated to 40. He states the chest pain lasted several hours until he came to the ED and was improved by medications given then. Currently chest pain -free. Patient does have advanced renal disease with most GFR 13 as outpatient and currently. His tail ripper, Dr. Fiore, has discussed possible dialysis in the future, but the patient still makes urine. The patient is seen with his at bedside and in conjunction with nephrology ARCHAEOLOGY PROFESSOR. The patient is agreeable for cardiac catheterization at this time and understands that he will need dialysis afterwards. Review of Systems All other systems reviewed negative except as stated in HPI PMFSH - History History Provided By: Patient, Family Member, Significant Other - Medical History Medical History: Medical History (Last Updated 02/27/18 @ 22:25 by Mercy Smith RN) Chronic renal insufficiency, stage III (moderate) Diabetes Onset Date: Unknown High cholesterol Onset Date: Unknown Hypertension Onset Date: Unknown Prostate cancer Onset Date: ~02/27/13 - Family History Family History: Family History (Last Reviewed 02/27/18 @ 17:09 by Zhanna Johnson RN) Other Family history of cancer - Tobacco History Second Hand Smoke Exposure: No Smoking Status: Never smoker - Alcohol History How Often Do You Have a Drink Containing Alcohol: Never - Substance Use History Substance History: No History of Abuse - Travel History Recent Travel in the [place] Within the Last 8 Weeks: No Recent Travel Out of the Country Within the Last 8 Weeks: No - Immunization History Tetanus Immunization: Unsure Hx Influenza Vaccine This Season: Yes Medications and Allergies Allergies Allergy/AdvReac Type Severity Reaction Status Date / Time No Known Allergies Allergy Uncoded 04/09/14 20:25 Home Medications Medication Instructions Recorded Confirmed Type Vitamin D3 1,000 unit PO DAILY 02/27/18 02/27/18 History allopurinol 150 mg PO DAILY 02/27/18 02/27/18 History amlodipine 10 mg PO DAILY 02/27/18 02/27/18 History aspirin [Aspirin Low Dose] 81 mg PO EVERY OTHER DAY 02/27/18 02/27/18 History calcitriol 0.25 mcg PO DAILY 02/27/18 02/27/18 History doxazosin 4 mg PO DAILY 02/27/18 02/27/18 History doxazosin 8 mg PO HS 02/27/18 02/27/18 History finasteride 5 mg PO DAILY 02/27/18 02/27/18 History furosemide 20 mg EVERY OTHER DAY 02/27/18 02/27/18 History hydralazine 25 mg PO BID 02/27/18 02/27/18 History insulin detemir U-100 [Levemir 12 unit SUB-Q QPM 02/27/18 02/27/18 History U-100 Insulin] nateglinide 120 mg PO TID 02/27/18 02/27/18 History nebivolol [Bystolic] 10 mg PO DAILY 02/27/18 02/27/18 History pravastatin 20 mg PO HS 02/27/18 02/27/18 History Active Medications: Active Medications Acetaminophen (Tylenol) 500 mg PO Q4H PRN PRN Reason: HEADACHE Hydrocodone Bitart/Acetaminophen (Valier 7.5/325) 1 tab PO Q4H PRN PRN Reason: PAIN SCALE 1 TO 5 Allopurinol (Zyloprim) 100 mg PO DAILY [facility] Last Admin: 02/28/18 08:49 Dose: 100 mg Amlodipine Besylate (Norvasc) 10 mg PO DAILY [facility] Last Admin: 02/28/18 08:49 Dose: 10 mg Aspirin (Aspirin) 325 mg PO DAILY [facility] Last Admin: 02/28/18 08:48 Dose: 325 mg Calcitriol (Rocaltrol) 0.25 mcg PO DAILY [facility] Last Admin: 02/28/18 08:49 Dose: 0.25 mcg Dextrose (D50w Vial) 50 ml IV.PUSH UNSCH PRN PRN Reason: PER HYPOGLYCEMIA PROTOCOL Doxazosin Mesylate (Cardura) 4 mg PO DAILY [facility] Last Admin: 02/28/18 08:50 Dose: 4 mg Doxazosin Mesylate (Cardura) 8 mg PO HS [facility] Last Admin: 02/27/18 22:04 Dose: 8 mg Finasteride (Proscar) 5 mg PO DAILY [facility] Last Admin: 02/28/18 08:49 Dose: 5 mg Glucagon (Glucagon Inj) 1 mg OTHER PRN PRN PRN Reason: for Hypoglycemia Protocol Hydralazine HCl (Apresoline) 25 mg PO BID [facility] Last Admin: 02/28/18 08:49 Dose: 25 mg Heparin Sodium/Dextrose (Heparin/D5w 25,000 U/250 Ml) 25,000 unit in 250 mls @ 10 mls/hr IV.CONT TITRATE PRN; Protocol PRN Reason: Per Protocol Last Admin: 02/27/18 22:00 Dose: 1,000 units/hr, 10 mls/hr Insulin Aspart (Novolog Insulin Suppl Scale Inj) 0 unit SQ ACHS [facility]; Protocol Last Admin: 02/27/18 23:10 Dose: Not Given Metoprolol Tartrate (Lopressor) 25 mg PO TID [facility] Last Admin: 02/28/18 08:50 Dose: 25 mg Morphine Sulfate (Morphine Inj) 2 mg IV.PUSH Q5M PRN PRN Reason: PAIN SCALE 6 TO 10 Nitroglycerin (Nitro-Bid 2% Oint) 1 inch TOPICAL Q6HR [facility] Last Admin: 02/28/18 06:13 Dose: 1 inch Pantoprazole Sodium (Protonix) 40 mg PO DAILY [facility] Last Admin: 02/28/18 08:49 Dose: 40 mg Pravastatin Sodium (Pravachol) 20 mg PO [facility] Last Admin: 02/27/18 22:05 Dose: 20 mg Sodium Chloride (Ns Flush) 2 ml IV.FLUSH UNSCH PRN PRN Reason: FLUSH AFTER USING IV ACCESS Sodium Chloride (Ns Flush) 2 ml IV.FLUSH BID [facility] Last Admin: 02/27/18 22:05 Dose: 2 ml Sodium Chloride (Ns Flush) 2 ml IV.FLUSH PRN PRN PRN Reason: FLUSH AFTER USING IV ACCESS Exam Vital signs: Vital Signs 02/27/18 10:15 02/27/18 12:00 02/27/18 19:00 Temperature 98 F 98 F Pulse Rate 62 65 69 Respiratory Rate 20 21 Blood Pressure 172/79 H 188/86 H Pulse Oximetry 96 97 02/27/18 19:18 02/27/18 20:00 02/27/18 21:00 Temperature 98.2 F 98.8 F Pulse Rate 65 68 68 Respiratory Rate 18 16 Blood Pressure 170/82 H 159/84 H Pulse Oximetry 97 93 L 02/27/18 22:00 02/27/18 23:00 02/28/18 00:00 Temperature Pulse Rate 76 70 68 Respiratory Rate Blood Pressure Pulse Oximetry 02/28/18 01:00 02/28/18 02:00 02/28/18 03:00 Temperature Pulse Rate 64 64 66 Respiratory Rate Blood Pressure Pulse Oximetry 02/28/18 04:00 02/28/18 09:31 Temperature 98 F Pulse Rate 64 71 Respiratory Rate 16 16 Blood Pressure 152/84 H 157/84 H Pulse Oximetry 96 95 Intake & Output 02/27/18 02/28/18 02/28/18 18:59 06:59 18:59 Intake Total 240 / 240 Output Total 600 / 600 Balance -360 / -360 Weight 184 lb 8.43 oz Intake: Oral 240 / 240 Output: Urine 600 / 600 Other: Weight On Admission 185 lb 3.013 oz Narrative: GENERAL: Well-developed well-nourished. In no acute distress. NECK: No carotid bruits. No JVD. CARDIOVASCULAR: Regular rate and rhythm. No murmur appreciated. RESPIRATORY: No accessory muscle use. Clear to auscultation. Breath sounds equal bilaterally. MUSCULOSKELETAL: No clubbing or cyanosis. No edema. NEUROLOGICAL: Awake and alert. Normal speech. Results 02/28/18 04:57 02/28/18 04:57 Cardiac Enzymes 02/27/18 02/27/18 02/27/18 Range/Units 12:55 12:55 23:05 CK-MB (CK-2) 43.8 H (0.5-3.6) ng/mL Troponin I Greater than 40.00 H* 27.20 H* (0.02-0.05) ng/mL Coagulation 02/28/18 Range/Units 04:57 APTT 69.0 H D (24.3-30.1) sec Lipids 02/28/18 Range/Units 04:57 Triglycerides 39 L (42-150) mg/dL Cholesterol 121 (120-200) mg/dL HDL Cholesterol 65.7 H (40.0-60.0) mg/dL Cholesterol/HDL Ratio 1.84 Ratio CBC 02/28/18 Range/Units 04:57 WBC 6.2 (4.0-11.0) th/mm3 RBC 3.50 L (4.50-5.90) mil/mm3 Hgb 8.6 L (13.0-17.0) gm/dL Hct 26.3 L (39.0-51.0) % Plt Count 168 (150-450) th/mm3 Neut # (Auto) 5.1 (1.8-7.7) th/mm3 Lymph # (Auto) 0.6 L (1.0-4.8) th/mm3 [facility] # (Auto) 0.5 (0.0-0.9) th/mm3 Eos # (Auto) 0.0 (0.0-0.4) th/mm3 Baso # (Auto) 0.0 (0.0-0.2) th/mm3 Comprehensive Metabolic Panel 02/28/18 Range/Units 04:57 Sodium 143 (136-145) meq/L Potassium 4.1 (3.5-5.1) meq/L Chloride 109 H (98-107) meq/L Carbon Dioxide 22.0 (21.0-32.0) meq/L BUN 72 H (7-18) mg/dL Creatinine 5.10 H (0.60-1.30) mg/dL Calcium 8.4 L (8.5-10.1) mg/dL Intake and Output 02/27/18 02/28/18 02/28/18 22:59 06:59 14:59 Intake Total 240 / 240 Output Total 600 / 600 Balance -360 / -360 Intake: Oral 240 / 240 Output: Urine 600 / 600 Other: Weight 185 lb 3.013 oz 184 lb 8.43 oz Weight On Admission 185 lb 3.013 oz Assessment and Plan - Plan 77-year-old male with a past medical history of HTN, HLD, DM, CKD stage V who presented for chest pain. Yesterday evening the patient was awoken from sleep with substernal chest pressure with associated nausea. No prior episodes of chest pain or heart disease in the past. He came to the ED for evaluation and EKGs have not revealed any ischemic changes. His initial troponin was 0.2 which elevated to 40. He states the chest pain lasted several hours until he came to the ED and was improved by medications given then. Currently chest pain -free. Patient does have advanced renal disease with most GFR 13 as outpatient and currently. His tail ripper, Dr. Fiore, has discussed possible dialysis in the future, but the patient still makes urine. The patient is seen with his at bedside and in conjunction with nephrology BARBARA. The patient is agreeable for cardiac catheterization at this time and understands that he will need dialysis afterwards. NSTEMI: Trop 0.2->40 ->27. Chest pain-free currently with Nitropaste and heparin GTT. N.p.o. for LHC today. CKD stage V: Nephrology on board, to have Vas-Cath placed today and dialysis after LHC. Discussed Condition With: Patient with at bedside, nephrology BARBARA, Dr. Manley <Ramon Manley - Last Filed: 02/28/18 14:31> History of Present Illness Primary Care Provider: No Primary Care Physician Family Provider: Scott Varner MD [facility] - Medical History Medical History: Medical History (Last Updated 02/27/18 @ 22:25 by Mercy Smith RN) Chronic renal insufficiency, stage III (moderate) Diabetes Onset Date: Unknown High cholesterol Onset Date: Unknown Hypertension Onset Date: Unknown Prostate cancer Onset Date: ~02/27/13 - Family History Family History: Family History (Last Reviewed 02/27/18 @ 17:09 by Zhanna Johnson RN) Other Family history of cancer Medications and Allergies Active Medications: Active Medications Acetaminophen (Tylenol) 500 mg PO Q4H PRN PRN Reason: HEADACHE Hydrocodone Bitart/Acetaminophen (Valier 7.5/325) 1 tab PO Q4H PRN PRN Reason: PAIN SCALE 1 TO 5 Allopurinol (Zyloprim) 100 mg PO DAILY [facility] Last Admin: 02/28/18 08:49 Dose: 100 mg Amlodipine Besylate (Norvasc) 10 mg PO DAILY [facility] Last Admin: 02/28/18 08:49 Dose: 10 mg Aspirin (Aspirin) 325 mg PO DAILY [facility] Last Admin: 02/28/18 08:48 Dose: 325 mg Calcitriol (Rocaltrol) 0.25 mcg PO DAILY [facility] Last Admin: 02/28/18 08:49 Dose: 0.25 mcg Dextrose (D50w Vial) 50 ml IV.PUSH UNSCH PRN PRN Reason: PER HYPOGLYCEMIA PROTOCOL Doxazosin Mesylate (Cardura) 4 mg PO DAILY [facility] Last Admin: 02/28/18 08:50 Dose: 4 mg Doxazosin Mesylate (Cardura) 8 mg PO HS [facility] Last Admin: 02/27/18 22:04 Dose: 8 mg Finasteride (Proscar) 5 mg PO DAILY [facility] Last Admin: 02/28/18 08:49 Dose: 5 mg Glucagon (Glucagon Inj) 1 mg OTHER PRN PRN PRN Reason: for Hypoglycemia Protocol Hydralazine HCl (Apresoline) 25 mg PO BID [facility] Last Admin: 02/28/18 08:49 Dose: 25 mg Heparin Sodium/Dextrose (Heparin/D5w 25,000 U/250 Ml) 25,000 unit in 250 mls @ 10 mls/hr IV.CONT TITRATE PRN; Protocol PRN Reason: Per Protocol Last Admin: 02/27/18 22:00 Dose: 1,000 units/hr, 10 mls/hr Dextrose (D10w Inj) 500 mls @ 15 mls/hr IV.CONT .Q24H [facility] Insulin Aspart (Novolog Insulin Suppl Scale Inj) 0 unit SQ ACHS [facility]; Protocol Last Admin: 02/28/18 12:49 Dose: Not Given Metoprolol Tartrate (Lopressor) 25 mg PO TID [facility] Last Admin: 02/28/18 12:55 Dose: 25 mg Morphine Sulfate (Morphine Inj) 2 mg IV.PUSH Q5M PRN PRN Reason: PAIN SCALE 6 TO 10 Nitroglycerin (Nitro-Bid 2% Oint) 1 inch TOPICAL Q6HR [facility] Last Admin: 02/28/18 12:56 Dose: 1 inch Pantoprazole Sodium (Protonix) 40 mg PO DAILY [facility] Last Admin: 02/28/18 08:49 Dose: 40 mg Pravastatin Sodium (Pravachol) 20 mg PO HS [facility] Last Admin: 02/27/18 22:05 Dose: 20 mg Sodium Chloride (Ns Flush) 2 ml IV.FLUSH UNSCH PRN PRN Reason: FLUSH AFTER USING IV ACCESS Sodium Chloride (Ns Flush) 2 ml IV.FLUSH BID [facility] Last Admin: 02/28/18 12:51 Dose: Not Given Sodium Chloride (Ns Flush) 2 ml IV.FLUSH PRN PRN PRN Reason: FLUSH AFTER USING IV ACCESS Exam Vital signs: Vital Signs 07/01/18 19:00 02/27/18 19:18 02/27/18 20:00 Temperature 98.2 F 98.8 F Pulse Rate 69 65 68 Respiratory Rate 18 16 Blood Pressure 170/82 H 159/84 H Pulse Oximetry 97 93 L 02/27/18 21:00 02/27/18 22:00 02/27/18 23:00 Temperature Pulse Rate 68 76 70 Respiratory Rate Blood Pressure Pulse Oximetry 02/28/18 00:00 02/28/18 01:00 02/28/18 02:00 Temperature Pulse Rate 68 64 64 Respiratory Rate Blood Pressure Pulse Oximetry 02/28/18 03:00 02/28/18 04:00 02/28/18 07:00 Temperature Pulse Rate 66 64 63 Respiratory Rate 16 Blood Pressure 152/84 H Pulse Oximetry 96 02/28/18 08:00 02/28/18 09:00 02/28/18 09:31 Temperature 98 F Pulse Rate 71 58 L 71 Respiratory Rate 16 Blood Pressure 157/84 H Pulse Oximetry 95 02/28/18 10:00 02/28/18 11:00 02/28/18 12:00 Temperature Pulse Rate 59 L 59 L 60 Respiratory Rate 16 Blood Pressure 145/74 H Pulse Oximetry 02/28/18 13:00 Temperature Pulse Rate 64 Respiratory Rate Blood Pressure Pulse Oximetry Intake & Output 02/27/18 02/28/18 02/28/18 18:59 06:59 18:59 Intake Total 240 / 240 Output Total 600 / 600 Balance -360 / -360 Weight 83.7 kg Intake: Oral 240 / 240 Output: Urine 600 / 600 Other: Weight On Admission 84 kg Results 02/28/18 04:57 02/28/18 04:57 Cardiac Enzymes 02/27/18 02/27/18 02/27/18 Range/Units 12:55 12:55 23:05 CK-MB (CK-2) 43.8 H (0.5-3.6) ng/mL Troponin I Greater than 40.00 H* 27.20 H* (0.02-0.05) ng/mL Coagulation 02/28/18 Range/Units 04:57 APTT 69.0 H D (24.3-30.1) sec Lipids 02/28/18 Range/Units 04:57 Triglycerides 39 L (42-150) mg/dL Cholesterol 121 (120-200) mg/dL HDL Cholesterol 65.7 H (40.0-60.0) mg/dL Cholesterol/HDL Ratio 1.84 Ratio CBC 02/28/18 Range/Units 04:57 WBC 6.2 (4.0-11.0) th/mm3 RBC 3.50 L (4.50-5.90) mil/mm3 Hgb 8.6 L (13.0-17.0) gm/dL Hct 26.3 L (39.0-51.0) % Plt Count 168 (150-450) th/mm3 Neut # (Auto) 5.1 (1.8-7.7) th/mm3 Lymph # (Auto) 0.6 L (1.0-4.8) th/mm3 [facility] # (Auto) 0.5 (0.0-0.9) th/mm3 Eos # (Auto) 0.0 (0.0-0.4) th/mm3 Baso # (Auto) 0.0 (0.0-0.2) th/mm3 Comprehensive Metabolic Panel 02/28/18 Range/Units 04:57 Sodium 143 (136-145) meq/L Potassium 4.1 (3.5-5.1) meq/L Chloride 109 H (98-107) meq/L Carbon Dioxide 22.0 (21.0-32.0) meq/L BUN 72 H (7-18) mg/dL Creatinine 5.10 H (0.60-1.30) mg/dL Calcium 8.4 L (8.5-10.1) mg/dL Intake and Output 02/27/18 02/28/18 02/28/18 22:59 06:59 14:59 Intake Total 240 / 240 Output Total 600 / 600 Balance -360 / -360 Intake: Oral 240 / 240 Output: Urine 600 / 600 Other: Weight 84 kg 83.7 kg Weight On Admission 84 kg Assessment and Plan - Attending Attestation NSTEMI LHC - mild nonobstructive CAD. vasospasm vs ruptured plaque. unclear medical mgt asa statin bb call with questions 30 cc total contrast administered. monitor Cr.
--- NOTE | 2018-02-28 10:41 | P.PNNP ---
Subjective Interval history: He is on heparin gtt, chest pain free. Renal function is stable, he is non oliguric. Pending plan from cardiology regarding possible cardiac catheterization. <Latasha Acosta - Last Filed: 02/28/18 10:32> Physical Exam Vital signs: Vital Signs 02/27/18 12:00 02/27/18 19:00 02/27/18 19:18 Temperature 98 F 98.2 F Pulse Rate 65 69 65 Respiratory Rate 21 18 Blood Pressure 188/86 H 170/82 H Pulse Oximetry 97 97 02/27/18 20:00 02/27/18 21:00 02/27/18 22:00 Temperature 98.8 F Pulse Rate 68 68 76 Respiratory Rate 16 Blood Pressure 159/84 H Pulse Oximetry 93 L 02/27/18 23:00 02/28/18 00:00 02/28/18 01:00 Temperature Pulse Rate 70 68 64 Respiratory Rate Blood Pressure Pulse Oximetry 02/28/18 02:00 02/28/18 03:00 02/28/18 04:00 Temperature Pulse Rate 64 66 64 Respiratory Rate 16 Blood Pressure 152/84 H Pulse Oximetry 96 02/28/18 07:00 02/28/18 08:00 02/28/18 09:00 Temperature Pulse Rate 63 71 58 L Respiratory Rate Blood Pressure Pulse Oximetry 02/28/18 09:31 Temperature 98 F Pulse Rate 71 Respiratory Rate 16 Blood Pressure 157/84 H Pulse Oximetry 95 Intake & Output 02/27/18 02/28/18 02/28/18 18:59 06:59 18:59 Intake Total 240 / 240 Output Total 600 / 600 Balance -360 / -360 Weight 83.7 kg Intake: Oral 240 / 240 Output: Urine 600 / 600 Other: Weight On Admission 84 kg - Constitutional no acute distress - Routine HEENT Exam Eye: Present: EOMI - Routine Neck Exam Present: supple - Routine Respiratory Exam Present: rales - Routine Abdominal Exam Present: soft, normoactive bowel sounds - Routine Extremities Exam Present: pulses intact, normal capillary refill - Routine Skin Exam Present: intact, warm - Routine Neurological Exam Present: alert, oriented X3 - Detailed Neurological Exam: Coma Scale Eye Opening: Spontaneous - Routine Psychiatric Exam Present: normal affect, normal thought process <Latasha Acosta - Last Filed: 02/28/18 10:32> Vital signs: Vital Signs 07/02/18 12:00 02/28/18 13:00 02/28/18 14:33 Temperature Pulse Rate 60 64 61 Respiratory Rate 16 Blood Pressure 145/74 H 155/87 H Pulse Oximetry 02/28/18 14:48 02/28/18 15:00 02/28/18 15:03 Temperature Pulse Rate 58 L 58 L 58 L Respiratory Rate Blood Pressure 152/82 H 156/83 H Pulse Oximetry 02/28/18 15:18 02/28/18 15:48 02/28/18 16:00 Temperature Pulse Rate 60 62 64 Respiratory Rate Blood Pressure 158/85 H 163/86 H Pulse Oximetry 02/28/18 16:18 02/28/18 16:48 02/28/18 17:00 Temperature Pulse Rate 65 71 70 Respiratory Rate Blood Pressure 153/85 H 161/85 H Pulse Oximetry 02/28/18 17:18 02/28/18 18:00 02/28/18 18:18 Temperature Pulse Rate 68 68 60 Respiratory Rate Blood Pressure 159/83 H 165/86 H Pulse Oximetry 02/28/18 19:00 02/28/18 20:00 02/28/18 20:43 Temperature 100.4 F H Pulse Rate 70 64 75 Respiratory Rate 19 Blood Pressure 158/89 H Pulse Oximetry 94 L 02/28/18 21:00 02/28/18 22:00 02/28/18 23:00 Temperature Pulse Rate 72 68 66 Respiratory Rate Blood Pressure Pulse Oximetry 02/28/18 23:11 03/01/18 00:00 03/01/18 01:00 Temperature 98.7 F Pulse Rate 65 73 60 Respiratory Rate 18 Blood Pressure 145/78 H Pulse Oximetry 95 03/01/18 02:00 03/01/18 03:00 03/01/18 03:27 Temperature 99.2 F Pulse Rate 63 64 73 Respiratory Rate 18 Blood Pressure 149/75 H Pulse Oximetry 94 L 03/01/18 04:00 03/01/18 05:00 03/01/18 06:00 Temperature Pulse Rate 68 77 57 L Respiratory Rate Blood Pressure Pulse Oximetry 03/01/18 07:00 03/01/18 08:00 03/01/18 10:35 Temperature 99.8 F H Pulse Rate 75 63 Respiratory Rate 18 Blood Pressure 165/81 H Pulse Oximetry 95 94 L Intake & Output 07/02/18 07/03/18 07/03/18 18:59 06:59 18:59 Intake Total 30 / 30 960 / 960 Output Total 500 / 500 775 / 775 Balance -470 / -470 185 / 185 Weight 83.7 kg Intake: IV 600 / 600 NS Inj 1,000 ML @ 100 mls/hr IV 600 / 600 .CONT .Q10H [facility] Rx#:[id number] Oral 30 30 360 / 360 Output: Urine 500 / 500 775 / 775 Other: Date of Last Bowel Movement 02/27/18 02/27/18 <Prabhjot Villalpando - Last Filed: 03/01/18 11:15> Assessment and Plan - Assessment (1) Chronic kidney disease (CKD), stage V Code(s): N18.5 - Chronic kidney disease, stage 5 Status: Acute Plan: In January his creatinine was 4.6, GFR 13. His renal function is stable this admission, and he is non oliguric. If a cardiac cath is planned, he most likely will require dialysis. We will repeat labs tomorrow after cath, decide on HD if needed. PermCath placement will be scheduled for Wednesday morning. Monitor urine output, avoid additional nephrotoxins. The patient has chosen in center HD if needed. (2) DM II (diabetes mellitus, type II), controlled Code(s): E11.9 - Type 2 diabetes mellitus without complications Status: Acute Qualifiers: Diabetes mellitus termite control servicer insulin use: with termite control servicer use Chronic kidney disease stage: stage 5, not on chronic dialysis Plan: Maintain glucose 140-180 mg/dL while admitted. Use D10 @ 15 if NPO. (3) Elevated troponin Code(s): R74.8 - Abnormal levels of other serum enzymes Status: Acute Plan: Cardiology consulted. He most likely will require cardiac catheterization. <Latasha Acosta - Last Filed: 02/28/18 10:32> - Assessment (1) Chronic kidney disease (CKD), stage V Code(s): N18.5 - Chronic kidney disease, stage 5 Status: Acute (2) DM II (diabetes mellitus, type II), controlled Code(s): E11.9 - Type 2 diabetes mellitus without complications Status: Acute Qualifiers: Diabetes mellitus alf insulin use: with alf use Chronic kidney disease stage: stage 5, not on chronic dialysis (3) Elevated troponin Code(s): R74.8 - Abnormal levels of other serum enzymes Status: Acute - Attending Attestation patient was seen and examined. Cardiac cath is planned. He is at high risk for MATHEW and need for dialysis. Patient and his are aware. <Prabhjot Villalpando - Last Filed: 03/01/18 11:15> Progress Note: Quality - VTE Deep Vein Thrombosis/Pulmonary Embolism Present on Admission: No <Latasha Acosta - Last Filed: 02/28/18 10:32>
[2018-02-28] MEDS ORDERED: Dextrose 10% in Water Inj 500 ML IV.CONT SCH (11:00)
--- NOTE | 2018-02-28 11:29 | ECG ---
Date Performed: 02/27/2018 Time Performed: 15:55:41 PTAGE: 77 years EKG: Sinus rhythm WITH FIRST DEGREE AV BLOCK MARKED LEFT AXIS DEVIATION PATTERN CONSISTENT WITH PULMONARY DISEASE ABNO RMAL ECG PREVIOUS TRACING : 02/27/2018 03.25 Since the previous tracing, no significant change noted DOCTOR: Scott Augustin Interpretating Date/Time 02/28/2018 11:27:37
[2018-02-28] MEDS ORDERED: fentaNYL Citrate Inj 100 MCG/2 ML Ampul ONE (13:51)
--- NOTE | 2018-02-28 14:34 | CATHPROC ---
Need Fixed HIS Report Study Information Study Number Admission Scheduled Start Study Start [id number] Feb 27 2018 6:30AM 02/28/2018 Feb 28 2018 1:45PM [place] [facility] Cardiac Catheterization Admit Source Facility Department Emergency department [facility] - Can Reforming Machine Operator Physician and Clinical Staff Initial Ramon Torres Human Resources Office AssistantMitchell Fernandez RN Human Resources Office AssistantTamir Martinez RN cathlab, cathlab Recorder Jeffrey Jenkins RCIS(BS) Scrub Constantine Judge,(R) Procedures Performed Procedure Location (Site) Vessel Name Coronary Angiograms LCA Left Coronary Coronary Angiograms RCA Right Coronary L Heart Cath Equipment Time Farmworker Livestock Description Size Mfg Part Number Used/Scraped TRANSDUCER, TRUWAVE [id number] 13:47 SIMPSON RENNER * Used W/STOCKCOCK *[id number] *[id number] 13:47 [employer] BLANKET,WARM AIR CCL * Used *[id number] 13:47 [employer] PACK, CCL CUSTOM * Used *[id number] 13:47 [employer] SUPPORT, ARTERIAL ADULT [id number] *[id number] Used [id number] 13:47 [employer] PACER PEN, SKIN DUAL W/ RULER * Used *[id number] 14:07 [employer] JL 3.5 DXTERITY CATHETER FR 5 Used *[id number] BAND, RADIAL COMPRESSION TR [id number] 14:25 [employer] 24CM Used SHORT 24 *[id number] SHEATH, FR6 RADIAL PRELUDE 13:47 [employer] FR 6 [id number] Used EASE 11CM [id number] 13:47 [employer] WIRE, EXCHANGE 260CM 3MMJ 260CM Used *[id number] 13:47 NAMIC MANIFOLD, 4 PORT * Used *[id number] 13:47 [employer]ED OMNIPAQUE, 350 MG, 150ML 150ML [id number] Used SHEATH, FR6 TRANSRADIAL [id number] 14:17 [employer] FR 6 Used SLENDER 10CM *[id number] History: Current Medications Medication Dosage/Unit Route Frequency Last Date/Time Taken Beta Rachell ASA History: Allergies Allergy Reaction No Known Allergies History: Risk Factors Family History of Hypertension Dyslipidemia Previous OR Previous Heart Failure Premature CAD Yes Yes No No Yes Prior Valve Prior PCI Prior CABG Surgery No No No Cerebrovascular Peripheral Artery Chronic Lung On Dialysis Diabetes Diabetes Therapy Disease Disease Disease No No No No Yes Insulin History: Symptoms/Diagnosis Selection Items Chest pain History: Stress Tests Stress or Imaging Studies Performed No History: Other Disease Selection Items HTN History: Other Current Smoker No Labs Hgb (g/dl) Hct (%) WBC (l/cumm) Platelets (thousands) 11.60-17.00 35.00-51.00 4.00-11.00 150.00-450.00 8.6 26.3 6.2 168 Glucose (mg/dl) BUN (mg/dl) Creatinine (mg/dl) BUN:Creatinine (1:x) 74.00-106.00 7.00-18.00 0.50-1.30 10.00-20.00 138 72 5.1 14.1 Na (meq/l) K (meq/l) 136.00-145.00 3.50-5.10 143 4.1 INR (PTT:PT) 0.90-1.10 1.1 Troponin I (ng/ml) CPK (u/l) CPK-MB (ng/ML) 0.02-0.05 26.00-308.00 0.50-3.60 27.2 572 7.7 Medication Medication Total Dose (Bolus/Oral) Medication Total Dosage/Unit 1% XYLOCAINE 2 mL FENTANYL 50 mcg HEPARIN 3000 units NTG (IC) 200 mcg VERSED 1 mg Medications (Bolus/Oral) Medication Time Given Dosage/Unit Administered By Reason VERSED 02/28/2018 2:11:53 PM 1 mg Mitchell Bah 1 mg VERSED given in lab by Mitchell Bah RN in Right Forearm via Peripheral IV. Ordered by Ramon Manley. FENTANYL 02/28/2018 2:12:00 PM 50 mcg Mitchell Bah 50 mcg FENTANYL given in lab by Mitchell Bah, OBDULIA in Right Forearm via Peripheral IV. Ordered by Ramon Blank. 1% XYLOCAINE 02/28/2018 2:12:40 PM 2 mL Ramon Manley 2 mL 1% XYLOCAINE given in lab by Ramon Manley in Right Radial via Subcutaneous. NTG (IC) 02/28/2018 2:16:20 PM 200 mcg Ramon Manley 200 mcg NTG (IC) given in lab by Ramon Manley in Right Radial via Intra-arterial. HEPARIN 02/28/2018 2:16:48 PM 3000 units Mitchell Bah 3000 units HEPARIN given in lab by Mitchell Bah, RN in Right Forearm via Peripheral IV. Ordered by Ramon Manley. Medication (Drip) Medication Time Given Dosage/Unit Concentration/Unit Diluent (ml) Solution IV Solutions 02/28/2018 1:46:30 PM 0 mL (IV) 500 NaCl .9 Patient arrived on IV Solutions in Right Forearm via Peripheral IV. Pump/Drip Flow = 20 ml/hr using N aCl .9. Ordered by Ramon Manley. Initial Case Assessment Cardiovascular HR Rhythm NIBP Chest Pain 66 nsr 158/91 0 Edema Present Skin color Skin None Normal Warm Dry Circulatory - Right Pulses Dorsalis Pedis Femoral Radial 2 2 2 Scale (0,1,2,3,4,d) Scale (0,1,2,3,4,d) Neurological State Oriented to time-place- Alert Moves all extremities person Respiration - General Respiration Rate SpO2 (%) (B/min) 15 97 Final Case Assessment Cardiovascular HR Rhythm NIBP Chest Pain 62 nsr 153/85 0 Edema Present Skin color Skin None Normal Warm Dry Circulatory - Right Pulses Dorsalis Pedis Femoral Radial 2 2 2 Scale (0,1,2,3,4,d) Scale (0,1,2,3,4,d) Neurological State Oriented to time-place- Alert Moves all extremities person Respiration - General Respiration Rate SpO2 (%) (B/min) 15 98 Chronological Log Time Study Chronological Log 13:46:22 Patient arrived via Bed. Heparin drip DCed upon chicken picker per . aware of CREAT. 13:46:23 Patient Name, D.O.B, / Armband Verified By R.N. 13:46:23 Consent signed by the physician and the patient and verified by the Can Reforming Machine Operator staff. 13:46:24 Pre-op and post- op instructions given; patient acknowledges understanding of instructions. Verbal Stimulation=~VERBAL~ Physical Stimulation=2 Airway=2 Respiration=2 TOTAL=8. (0=absent, 1 =limited, 13:46:24 2=present) 13:46:25 Presedation assessment performed by Can Reforming Machine Operator RN. 13:46:25 Allens test performed on the right radial and ulnar artery. POSITIVE. 13:46:26 Immediate Presedation assesment performed by physician. 13:46:26 Patient has been NPO for More than 6Hrs. 13:46:27 Skin Breakdown- none per patient 13:46: Patient Warmer Placed on the Table. 13:46:28 Sabine Prominences Protected 13:46:29 A # 20 IV was noted in the Forearm (right). Grade = 0 Patient arrived on IV Solutions in Right Forearm via Peripheral IV. Pump/Drip Flow = 20 ml/hr u sing NaCl .9. Ordered 13:46:30 by Ramon Manley. 13:46:31 History and physical on the chart or being dictated. Vitals capture started with the following parameters, Patient=Adult, Interval=5 min, Initial Pr fwpnib=945 mmHg, 13:49:38 Deflation Rate=5 mmHg, Cuff placed on Left Arm 13:50:54 HR=68 bpm, SIWC=984/91 mmhg, SpO2=95.0 %, Resp=15 B/min, Pain=0, Bishop=10, [place]=2 13:51:50 Reference ECG taken Assessment: Initial Case, HR=66 BPM, Rhythm=nsr, IDKV=748/91 mmhg, Chest Pain=0, Edema=None, Co zurdo=Normal, Skin = Warm, Dry 13:51:52 Right Pulses: Zaki Ped=2, Femoral=2, Radial=2 Neurological: State=Alert, Ox3, VALDOVINOS Respiration: Resp=15 B/min, SpO2=97 % 13:55:20 HR=70 bpm, EQEM=464/88 mmhg, SpO2=94.0 %, Resp=16 B/min, Pain=0, Bishop=10, [place]=2 14:00:19 HR=68 bpm, DBMX=678/90 mmhg, SpO2=95.0 %, Resp=15 B/min, Pain=0, Bishop=10, [place]=2 14:00:43 Right Radial and groin(s) prepped with 2% chlorhexidine, and draped after a 3 min. waiting time. 14:02:11 paged 14:02:34 MD responded 14:03:51 Pressure channel 1 zeroed. 14:05:22 HR=60 bpm, HBIQ=037/86 mmhg, SpO2=97.0 %, Resp=22 B/min, Pain=0, Bishop=10, [place]=2 14:07:18 MD arrived. 14:07:21 Contrast Scanned 14:07:22 Immediate Presedation assesment performed by physician. Time Out. Correct patient, correct procedure, correct physician, labs, allergies, and equipment verified with trestle mainternance laborer 14:08:33 team present. Fire risk assesment completed (see hard stop sheet for coding). Time Out Conc urred by MD and individual staff in procedure. 14:10:25 HR=61 bpm, ORXR=270/76 mmhg, SpO2=96.0 %, Resp=12 B/min, Pain=0, Bishop=10, [place]=2 14:11:53 1 mg VERSED given in lab by Mitchell Bah RN in Right Forearm via Peripheral IV. Ordered by Ramon Manley. 14:12:00 50 mcg FENTANYL given in lab by Mitchell Bah, OBDULIA in Right Forearm via Peripheral IV. Orde red by Ramon Manley. 14:12:39 Case Start 14:12:40 2 mL 1% XYLOCAINE given in lab by Ramon Manley in Right Radial via Subcutaneous. 14:15:00 Access site was right Radial Artery. 14:15:28 HR=57 bpm, OJDS=684/74 mmhg, SpO2=94.0 %, Resp=20 B/min A SHEATH, FR6 TRANSRADIAL SLENDER 10CM FR 6 was advanced into the Radial (right) using the Perc utaneous 14:15:54 technique. 14:16:20 200 mcg NTG (IC) given in lab by Ramon Manley in Right Radial via Intra-arterial. 14:16:48 3000 units HEPARIN given in lab by Mitchell Bah, OBDULIA in Right Forearm via Peripheral IV. O rdered by Ramon Manley. A JR 5.0 INFINITI CATHETER FR 5 was advanced over a wire. OMNIPAQUE, 350 MG, 150ML 150ML was us ed for 14:18:01 injections. Recorded Pressure: LV, Ao, HR=55, Condition=Condition 1 14:19:02 (Left Ventricle) LV 161/16/35, (Aorta) Ao 162/63/100 Recorded Pressure: Ao, HR=55, Condition=Condition 1 14:19:41 (Aorta) Ao 164/65/102 14:20:05 The RCA was injected and visualized at various angles. OMNIPAQUE, 350 MG, 150ML 150ML used . 14:20:19 HR=56 bpm, LLQM=947/85 mmhg, SpO2=95.0 %, Resp=19 B/min After removing the current catheter a JL 3.5 DXTERITY CATHETER FR 5 was advanced over a WIRE, E XCHANGE 260CM 14:21:23 3MMJ 260CM. 14:21:43 The LCA was injected and visualized at various angles. OMNIPAQUE, 350 MG, 150ML 150ML used . 14:23:41 Catheter was removed 14:23:52 Case End (Physician broke scrub) Assessment: Final Case, HR=62 BPM, Rhythm=nsr, LGAO=331/85 mmhg, Chest Pain=0, Edema=None, [place] r=Normal, Skin = Warm, Dry 14:24:06 Right Pulses: Zaki Ped=2, Femoral=2, Radial=2 Neurological: State=Alert, Ox3, VALDOVINOS Respiration: Resp=15 B/min, SpO2=98 % 14:24:24 Catheter(s) removed without difficulty Radial Compression Device Used. ~VOLUME ML~ mLs of air placed in BAND, RADIAL COMPRESSION TR ORT 24 14:24:27 24CM. Affected hand ~O2 SATURATION~ % O2 saturation. 14:24:44 Sterile dressing applied to site 14:24:46 No case complications noted. 14:24:48 Cine recording checked. 14:24:50 Bedside Report will be given. 14:24:56 A Left Heart Cath was performed. 14:25:24 HR=61 bpm, RPHW=112/84 mmhg, SpO2=95.0 %, Resp=16 B/min, Pain=0, Bishop=10, [place]=2 14:30:25 BSLF=142/85 mmhg 14:34:08 Vitals capture stopped. 14:34:17 [facility] - Contrast Media Used In Study Contrast Total Opened (mL) Total Used (mL) Total Wasted (mL) Omnipaque 30 30 0 End Study - Maximum Contrast Load Max Contrast Load (mL) 82.0 End Study - Radiation Exposure Fluoro Time (minutes) 1.8 End Study - Patient Disposition Complications Transferred To Interventional Outcome No Telemetry Bed No attempt made
[2018-02-28] MEDS ORDERED: Isosorbide Mononitrate 30 MG ER 24HR Tablet (Imdur) PO ONE (14:35)
[2018-02-28] MEDS ORDERED: Sod Chloride 0.9% Inj 1,000 ML IV.CONT SCH (14:45)
[2018-02-28] MEDS ORDERED: Iohexol 350 MG/ML 50 ML Vial (for Cath Lab) IV.SIG ONE (14:48)
--- NOTE | 2018-02-28 14:53 | MA ---
cc: Ramon Manley MD DATE: 02/28/2018 INDICATION: Non-ST elevation myocardial infarction. PROCEDURE PERFORMED: 1. Fluoroscopy with interpretation. 2. Left heart catheterization. 3. Coronary angiography. METHOD: Risks, benefits, alternatives discussed with the patient. The patient understood and consented to the procedure. DESCRIPTION OF PROCEDURE: The patient was brought to the catheterization lab and placed on the catheterization table. The right wrist was prepped and draped in sterile fashion. The right wrist was anesthetized with 2% lidocaine. Right radial artery was cannulated and a 6-Macanese 7 cm sheath was placed without difficulty. LEFT HEART CATHETERIZATION: Intraventricular hemodynamics were measured at 120/5 mmHg. CORONARY ANGIOGRAPHY: 1. Left main coronary has mild luminal irregularities. 2. The left anterior descending coronary has mild luminal irregularities, large caliber size vessel. 3. Left circumflex has mild luminal irregularities. 4. Right coronary artery is dominant vessel giving rise to a posterior descending branch. Right coronary has mild luminal irregularities. CONCLUSIONS: 1. Mild nonobstructive coronary artery disease. 2. Normal left-sided filling pressures. PLAN: The patient will be monitored closely for post-procedure complications. It is not entirely clear what prompted his significant elevation in troponin. Could be plaque rupture with recanalization, although I do not clearly see that on the coronaries. Could also have been vasospasm. This is less likely to be secondary to renal retention. We will monitor closely. We will continue with aggressive medical therapy with aspirin, statin, beta ronald and long-acting nitrate. If no arrhythmias overnight and echocardiogram is unremarkable, can be discharged tomorrow. Ramon Manley MD KWAKU/TL , 02:38 PM , 02:51 PM
--- NOTE | 2018-02-28 19:23 | ECHRPT ---
Indication: CONCLUSIONS The left ventricular systolic function is normal with an estimated ejection fraction in the range of 55-60%. Mild concentric left ventricular hypertrophy. The left atrial size is fjjf-bq-gkahiosgon dilated. Mild mitral valve regurgitation. Trace aortic valve regurgitation. There is mild to moderate tricuspid valve regurgitation. The estimated pulmonary arterial pressure is 49.9 mmHg. There is a trace pericardial effusion present. BP: / HR: Rhythm: MEASUREMENTS (Male / Female) Normal Values Technical Quality: 2D ECHO LV Diastolic Diameter PLAX 5.8 cm 4.2 - 5.9 / 3.9 - 5.3 cm LV Systolic Diameter PLAX 4.2 cm IVS Diastolic Thickness 1.6 cm 0.6 - 1.0 / 0.6 - 0.9 cm LVPW Diastolic Thickness 1.4 cm 0.6 - 1.0 / 0.6 - 0.9 cm LV Relative Wall Thickness 0.5 RV Internal Dim ED PLAX 2.8 cm M-MODE Aortic Root Diameter MM 3.2 cm LA Systolic Diameter MM 4.8 cm LA Ao Ratio MM 1.5 AV Cusp Separation MM 1.5 cm DOPPLER Mitral E Point Velocity 143.0 cm/s Mitral A Point Velocity 62.9 cm/s Mitral E to A Ratio 2.3 LV E' Lateral Velocity 5.4 cm/s Mitral E to LV E' Lateral Ratio 26.7 TR Peak Velocity 316.0 cm/s TR Peak Gradient 39.9 mmHg Right Atrial Pressure 10.0 mmHg Pulmonary Artery Systolic Pressu 49.9 mmHg Right Ventricular Systolic Press 49.9 mmHg FINDINGS LEFT VENTRICLE The left ventricular systolic function is normal with an estimated ejection fraction in the range of 55-60%. Mild concentric left ventricular hypertrophy. Normal left ventricular size. RIGHT VENTRICLE Normal right ventricular size and systolic function. LEFT ATRIUM The left atrial size is qkfg-xv-kemrxzbywz dilated. RIGHT ATRIUM The right atrial size is normal. ATRIAL SEPTUM Normal atrial septal thickness without atrial level shunting by limited color doppler interrogation. AORTA The aortic root and proximal ascending aorta are not well visualized. MITRAL VALVE Mild mitral valve regurgitation. AORTIC VALVE Trace aortic valve regurgitation. Trileaflet aortic valve. TRICUSPID VALVE Structurally normal tricuspid valve. There is mild to moderate tricuspid valve regurgitation. The estimated pulmonary arterial pressure is 49.9 mmHg. PULMONARY VALVE No pulmonary valve regurgitation or stenosis. VESSELS The inferior vena cava is normal in size. PERICARDIUM There is a TRACEpericardial effusion present. Ramon Manley MD, FACC (Electronically Signed) Final Date:28 February 2018 19:22
[2018-02-28] MEDS ORDERED: Sodium Chloride 23.4% Inj 154 MEQ in Dextrose 10% in Water Inj 1,000 ML IV.SIG SCH ×2 (21:00)
[2018-03-01 06:41] LABS: Calcium 8.3 mg/dL (8.5-10.1); Carbon Dioxide 19.7 meq/L (21.0-32.0); Phosphorus 3.7 mg/dL (2.5-4.9); Potassium 4.3 meq/L (3.5-5.1)
[2018-03-01 07:38] LABS: Baso % (Auto) 0.5 % (0.0-2.0); Eos % (Auto) 0.3 % (0.0-4.0); Hematocrit 28.6 % (39.0-51.0); Lymph # (Auto) 0.9 th/mm3 (1.0-4.8); Lymph % (Auto) 10.3 % (9.0-44.0); Mean Corpuscular HGB Conc 31.3 % (32.0-36.0); Mean Corpuscular Hemoglobin 23.6 pg (27.0-34.0); Mean Corpuscular Volume 75.3 fL (80.0-100.0); Mean Platelet Volume 11.4 fL (7.0-11.0); Mono # (Auto) 0.6 th/mm3 (0.0-0.9); Mono % (Auto) 6.3 % (0.0-8.0); Neut # (Auto) 7.5 th/mm3 (1.8-7.7); Neut % (Auto) 82.6 % (16.0-70.0); Platelet Count 165 th/mm3 (150-450); Red Cell Distribution Width 18.4 % (11.6-17.2); White Blood Count 9.1 th/mm3 (4.0-11.0)
[2018-03-01 08:19] LABS: Acanthocytes 1+; Ovalocytes 1+
--- NOTE | 2018-03-01 09:17 | P.PNNP ---
Subjective Interval history: He had cardiac cath yesterday, no stent placement. No acute concerns today. Creatinine is slightly better today. <Latasha Acosta - Last Filed: 03/01/18 09:11> Physical Exam Vital signs: Vital Signs 02/28/18 09:31 02/28/18 10:00 02/28/18 11:00 Temperature 98 F Pulse Rate 71 59 L 59 L Respiratory Rate 16 Blood Pressure 157/84 H Pulse Oximetry 95 02/28/18 12:00 02/28/18 13:00 02/28/18 14:33 Temperature Pulse Rate 60 64 61 Respiratory Rate 16 Blood Pressure 145/74 H 155/87 H Pulse Oximetry 02/28/18 14:48 02/28/18 15:00 02/28/18 15:03 Temperature Pulse Rate 58 L 58 L 58 L Respiratory Rate Blood Pressure 152/82 H 156/83 H Pulse Oximetry 02/28/18 15:18 02/28/18 15:48 02/28/18 16:00 Temperature Pulse Rate 60 62 64 Respiratory Rate Blood Pressure 158/85 H 163/86 H Pulse Oximetry 02/28/18 16:18 02/28/18 16:48 02/28/18 17:00 Temperature Pulse Rate 65 71 70 Respiratory Rate Blood Pressure 153/85 H 161/85 H Pulse Oximetry 02/28/18 17:18 02/28/18 18:00 02/28/18 18:18 Temperature Pulse Rate 68 68 60 Respiratory Rate Blood Pressure 159/83 H 165/86 H Pulse Oximetry 02/28/18 19:00 02/28/18 20:00 02/28/18 20:43 Temperature 100.4 F H Pulse Rate 70 64 75 Respiratory Rate 19 Blood Pressure 158/89 H Pulse Oximetry 94 L 02/28/18 21:00 02/28/18 22:00 02/28/18 23:00 Temperature Pulse Rate 72 68 66 Respiratory Rate Blood Pressure Pulse Oximetry 02/28/18 23:11 03/01/18 00:00 03/01/18 01:00 Temperature 98.7 F Pulse Rate 65 73 60 Respiratory Rate 18 Blood Pressure 145/78 H Pulse Oximetry 95 03/01/18 02:00 03/01/18 03:00 03/01/18 03:27 Temperature 99.2 F Pulse Rate 63 64 73 Respiratory Rate 18 Blood Pressure 149/75 H Pulse Oximetry 94 L 03/01/18 04:00 03/01/18 05:00 03/01/18 06:00 Temperature Pulse Rate 68 77 57 L Respiratory Rate Blood Pressure Pulse Oximetry Intake & Output 02/28/18 03/01/18 03/01/18 18:59 06:59 18:59 Intake Total 30 / 30 960 / 960 Output Total 500 / 500 775 / 775 Balance -470 / -470 185 / 185 Weight 83.7 kg Intake: IV 600 / 600 NS Inj 1,000 ML @ 100 mls/hr IV 600 / 600 .CONT .Q10H TELLO Rx#:[id number] Oral 30 30 360 / 360 Output: Urine 500 / 500 775 / 775 Other: Date of Last Bowel Movement 02/27/18 - Constitutional no acute distress - Routine HEENT Exam Head: Present: normocephalic - Routine Neck Exam Present: supple, full ROM - Routine Respiratory Exam Present: CTA bilaterally - Routine Cardiovascular Exam Present: RRR, S1, S2 - Routine Abdominal Exam Present: soft, normoactive bowel sounds - Routine Skin Exam Present: intact, warm - Routine Neurological Exam Present: alert, oriented X3, CN II-XII intact - Routine Psychiatric Exam Present: normal affect, normal thought process <Latasha Acosta - Last Filed: 03/01/18 09:11> Vital signs: Vital Signs 02/28/18 12:00 02/28/18 13:00 02/28/18 14:33 Temperature Pulse Rate 60 64 61 Respiratory Rate 16 Blood Pressure 145/74 H 155/87 H Pulse Oximetry 02/28/18 14:48 02/28/18 15:00 02/28/18 15:03 Temperature Pulse Rate 58 L 58 L 58 L Respiratory Rate Blood Pressure 152/82 H 156/83 H Pulse Oximetry 02/28/18 15:18 02/28/18 15:48 02/28/18 16:00 Temperature Pulse Rate 60 62 64 Respiratory Rate Blood Pressure 158/85 H 163/86 H Pulse Oximetry 02/28/18 16:18 02/28/18 16:48 02/28/18 17:00 Temperature Pulse Rate 65 71 70 Respiratory Rate Blood Pressure 153/85 H 161/85 H Pulse Oximetry 02/28/18 17:18 02/28/18 18:00 02/28/18 18:18 Temperature Pulse Rate 68 68 60 Respiratory Rate Blood Pressure 159/83 H 165/86 H Pulse Oximetry 02/28/18 19:00 02/28/18 20:00 02/28/18 20:43 Temperature 100.4 F H Pulse Rate 70 64 75 Respiratory Rate 19 Blood Pressure 158/89 H Pulse Oximetry 94 L 02/28/18 21:00 02/28/18 22:00 02/28/18 23:00 Temperature Pulse Rate 72 68 66 Respiratory Rate Blood Pressure Pulse Oximetry 02/28/18 23:11 03/01/18 00:00 03/01/18 01:00 Temperature 98.7 F Pulse Rate 65 73 60 Respiratory Rate 18 Blood Pressure 145/78 H Pulse Oximetry 95 03/01/18 02:00 03/01/18 03:00 03/01/18 03:27 Temperature 99.2 F Pulse Rate 63 64 73 Respiratory Rate 18 Blood Pressure 149/75 H Pulse Oximetry 94 L 03/01/18 04:00 03/01/18 05:00 03/01/18 06:00 Temperature Pulse Rate 68 77 57 L Respiratory Rate Blood Pressure Pulse Oximetry 03/01/18 07:00 03/01/18 08:00 03/01/18 09:00 Temperature 99.8 F H Pulse Rate 75 63 62 Respiratory Rate 18 Blood Pressure 165/81 H Pulse Oximetry 95 03/01/18 10:00 03/01/18 10:35 03/01/18 11:00 Temperature Pulse Rate 61 62 Respiratory Rate Blood Pressure Pulse Oximetry 94 L Intake & Output 02/28/18 03/01/18 03/01/18 18:59 06:59 18:59 Intake Total 30 30 960 / 960 Output Total 500 / 500 775 / 775 Balance -470 / -470 185 / 185 Weight 83.7 kg Intake: IV 600 / 600 NS Inj 1,000 ML @ 100 mls/hr IV 600 / 600 .CONT .Q10H TELLO Rx#:[id number] Oral 30 30 360 / 360 Output: Urine 500 / 500 775 / 775 Other: Date of Last Bowel Movement 02/27/18 02/27/18 <Prabhjot Villalpando - Last Filed: 03/01/18 11:24> Assessment and Plan - Assessment (1) Chronic kidney disease (CKD), stage V Code(s): N18.5 - Chronic kidney disease, stage 5 Status: Acute Plan: In January his creatinine was 4.6, GFR 13. S/P cardiac catheterization, his creatinine is slightly better today. PermCath placement cancelled. Diet changed to renal, low protein, low potassium. Currently has excellent urine output. Repeat labs tomorrow. If discharged we will follow in CKD clinic to discuss dialysis plans for the future if needed. Monitor urine output, avoid additional nephrotoxins. (2) DM II (diabetes mellitus, type II), controlled Code(s): E11.9 - Type 2 diabetes mellitus without complications Status: Acute Qualifiers: Diabetes mellitus joint terminal attack controller insulin use: with joint terminal attack controller use Chronic kidney disease stage: stage 5, not on chronic dialysis Plan: Maintain glucose 140-180 mg/dL while admitted. Stop D10, advance diet. (3) Elevated troponin Code(s): R74.8 - Abnormal levels of other serum enzymes Status: Acute Plan: Cardiology following, s/p cardiac catheterization. May have been vasospasm. <Latasha Acosta - Last Filed: 03/01/18 09:11> - Assessment (1) Chronic kidney disease (CKD), stage V Code(s): N18.5 - Chronic kidney disease, stage 5 Status: Acute (2) DM II (diabetes mellitus, type II), controlled Code(s): E11.9 - Type 2 diabetes mellitus without complications Status: Acute Qualifiers: Diabetes mellitus long-term insulin use: with joint terminal attack controller use Chronic kidney disease stage: stage 5, not on chronic dialysis (3) Elevated troponin Code(s): R74.8 - Abnormal levels of other serum enzymes Status: Acute - Attending Attestation patient was seen and examined. Agree with above assessment and plan. Patient's creatinine has improved slightly. Will defer dialysis today. <Prabhjot Villalpando - Last Filed: 03/01/18 11:24>
[2018-03-01] MEDS: Calcitriol 0.25 MCG Capsule PO SCH (09:32)
[2018-03-01] MEDS: Aspirin 325 MG Tablet PO SCH (09:32)
[2018-03-01] MEDS: Finasteride 5 MG Tablet PO SCH (09:32)
[2018-03-01] MEDS: hydrALAZINE 25 MG Tablet PO SCH (09:33)
[2018-03-01] MEDS: Allopurinol 100 MG Tablet PO SCH (09:33)
[2018-03-01] MEDS: Doxazosin 4 MG Tablet PO SCH (09:33)
[2018-03-01] MEDS: amLODIPine 10 MG Tablet PO SCH (09:33)
[2018-03-01] MEDS: Metoprolol Tartrate 25 MG Tablet PO SCH ×2 (09:33→13:14)
[2018-03-01] MEDS: Insulin NovoLOG Aspart Correctional Sugar Inj SQ SCH ×2 (09:41→13:15)
--- NOTE | 2018-03-01 11:43 | P.PNNP ---
Subjective Interval history: Had cath. No intervention. Renal function is stable. Physical Exam Vital signs: Vital Signs 02/28/18 12:00 02/28/18 13:00 02/28/18 14:33 Temperature Pulse Rate 60 64 61 Respiratory Rate 16 Blood Pressure 145/74 H 155/87 H Pulse Oximetry 02/28/18 14:48 02/28/18 15:00 02/28/18 15:03 Temperature Pulse Rate 58 L 58 L 58 L Respiratory Rate Blood Pressure 152/82 H 156/83 H Pulse Oximetry 02/28/18 15:18 02/28/18 15:48 02/28/18 16:00 Temperature Pulse Rate 60 62 64 Respiratory Rate Blood Pressure 158/85 H 163/86 H Pulse Oximetry 02/28/18 16:18 02/28/18 16:48 02/28/18 17:00 Temperature Pulse Rate 65 71 70 Respiratory Rate Blood Pressure 153/85 H 161/85 H Pulse Oximetry 02/28/18 17:18 02/28/18 18:00 02/28/18 18:18 Temperature Pulse Rate 68 68 60 Respiratory Rate Blood Pressure 159/83 H 165/86 H Pulse Oximetry 02/28/18 19:00 02/28/18 20:00 02/28/18 20:43 Temperature 100.4 F H Pulse Rate 70 64 75 Respiratory Rate 19 Blood Pressure 158/89 H Pulse Oximetry 94 L 02/28/18 21:00 02/28/18 22:00 02/28/18 23:00 Temperature Pulse Rate 72 68 66 Respiratory Rate Blood Pressure Pulse Oximetry 02/28/18 23:11 03/01/18 00:00 03/01/18 01:00 Temperature 98.7 F Pulse Rate 65 73 60 Respiratory Rate 18 Blood Pressure 145/78 H Pulse Oximetry 95 03/01/18 02:00 03/01/18 03:00 03/01/18 03:27 Temperature 99.2 F Pulse Rate 63 64 73 Respiratory Rate 18 Blood Pressure 149/75 H Pulse Oximetry 94 L 03/01/18 04:00 03/01/18 05:00 03/01/18 06:00 Temperature Pulse Rate 68 77 57 L Respiratory Rate Blood Pressure Pulse Oximetry 03/01/18 07:00 03/01/18 08:00 03/01/18 09:00 Temperature 99.8 F H Pulse Rate 75 63 62 Respiratory Rate 18 Blood Pressure 165/81 H Pulse Oximetry 95 03/01/18 10:00 03/01/18 10:35 03/01/18 11:00 Temperature Pulse Rate 61 62 Respiratory Rate Blood Pressure Pulse Oximetry 94 L Intake & Output 02/28/18 03/01/18 03/01/18 18:59 06:59 18:59 Intake Total 30 / 30 960 / 960 1000 / 1000 Output Total 500 / 500 775 / 775 Balance -470 / -470 185 / 185 1000 / 1000 Weight 83.7 kg Intake: IV 600 / 600 1000 / 1000 NS Inj 1,000 ML @ 100 mls/hr IV 600 / 600 .CONT .Q10H TELLO Rx#:[id number] Sodium Chloride 23.4% Inj 154 1000 / 1000 MEQ In D10W Inj 1,000 ML @ 50 mls/hr IV.SIG .[id number] TELLO Rx#: [id number] Oral 30 / 30 360 / 360 Output: Urine 500 / 500 775 / 775 Other: Date of Last Bowel Movement 02/27/18 02/27/18 - Constitutional no acute distress - Routine HEENT Exam Head: Present: normocephalic Eye: Present: EOMI ENT: Present: mucous membranes moist - Routine Respiratory Exam Present: CTA bilaterally - Routine Cardiovascular Exam Present: RRR, S1, S2 - Routine Abdominal Exam Present: soft, normoactive bowel sounds Assessment and Plan - Assessment (1) Chronic kidney disease (CKD), stage V Code(s): N18.5 - Chronic kidney disease, stage 5 Status: Acute Plan: In January his creatinine was 4.6, GFR 13. S/P cardiac catheterization, his creatinine is slightly better today. PermCath placement cancelled. Diet changed to renal, low protein, low potassium. Currently has excellent urine output. Repeat labs tomorrow. If discharged we will follow in CKD clinic to discuss dialysis plans for the future if needed. Monitor urine output, avoid additional nephrotoxins. (2) DM II (diabetes mellitus, type II), controlled Code(s): E11.9 - Type 2 diabetes mellitus without complications Status: Acute Qualifiers: Diabetes mellitus manager social responsibility insulin use: with prison use Chronic kidney disease stage: stage 5, not on chronic dialysis Plan: Maintain glucose 140-180 mg/dL while admitted. Stop D10, advance diet. (3) Elevated troponin Code(s): R74.8 - Abnormal levels of other serum enzymes Status: Acute Plan: Cardiology following, s/p cardiac catheterization. May have been vasospasm.
--- NOTE | 2018-03-01 13:53 | P.DS ---
Date of admission: 02/27/18 06:30 Primary care physician: No Primary Care Physician Brief History from admission: patient is a 77 years old male with known history of DM type 2 insulin requirinf, Nephropathy, hypertesnion, nhyperlipdemia, CHF who woke up from sleep this 2 am with left sided chest pain- described as pressure like lasted till he arrived to ER- - patient was given ASa, SL NTG, and topical nitrates and IV Morphine with relief. Per patient increase shortness of bfrreath for past few days and leg swelling in past 1 week , He was On lasix 20 mg daily as OP and this was decreased to every other day about 4 weeks ago by nephrology becausee his creatinine was increasing as OP. - last creatinine was 4.6 then Denies any fever or chills, states still voiding with no difficulties, mikayla any diarrhea, baseline 2 pillow orthopnea. Now is chest pain free, appears comfortable, on exam with Leg swelling and few bibasal rales DS: Diagnosis - Discharge Diagnosis (1) NSTEMI (non-ST elevated myocardial infarction) Status: Acute (2) Acute renal failure Status: Acute (3) DM II (diabetes mellitus, type II), controlled Status: Chronic DS: Medications - Discharge Medications Prescriptions: atorvastatin 20 mg PO HS #90 tab metoprolol tartrate 25 mg PO BID #60 tab DS: Summary Hospital Course: Mr. Saleh is a 78-year-old -[place] male with a history of diabetes mellitus, hypertension, CKD who presented to the emergency department on 2017 due to left-sided chest pain. Upon admission he was found to have elevated creatinine as well from his baseline. Troponin was elevated with peak troponin 40. Cardiology evaluated patient and patient underwent cardiac catheterization which did not show any significant occlusion. Cardiology recommended medical management with beta-ronald, aspirin, statin. Nephrology was consulted due to acute on chronic kidney disease. Patient's creatinine actually improved to 4.81. Nephrology recommended outpatient follow-up if patient is discharged. Patient is hemodynamically stable and being discharged home today. - Time Spent with Patient Total time spent providing and/or coordinating discharge services: Less than 30 minutes - Quality: VTE Deep Vein Thrombosis/Pulmonary Embolism Present on Admission: No Exam Vital signs: Vital Signs 02/28/18 14:33 02/28/18 14:48 02/28/18 15:00 Temperature Pulse Rate 61 58 L 58 L Respiratory Rate Blood Pressure 155/87 H 152/82 H Pulse Oximetry 02/28/18 15:03 02/28/18 15:18 02/28/18 15:48 Temperature Pulse Rate 58 L 60 62 Respiratory Rate Blood Pressure 156/83 H 158/85 H 163/86 H Pulse Oximetry 02/28/18 16:00 02/28/18 16:18 02/28/18 16:48 Temperature Pulse Rate 64 65 71 Respiratory Rate Blood Pressure 153/85 H 161/85 H Pulse Oximetry 02/28/18 17:00 02/28/18 17:18 02/28/18 18:00 Temperature Pulse Rate 70 68 68 Respiratory Rate Blood Pressure 159/83 H Pulse Oximetry 02/28/18 18:18 02/28/18 19:00 02/28/18 20:00 Temperature Pulse Rate 60 70 64 Respiratory Rate Blood Pressure 165/86 H Pulse Oximetry 02/28/18 20:43 02/28/18 21:00 02/28/18 22:00 Temperature 100.4 F H Pulse Rate 75 72 68 Respiratory Rate 19 Blood Pressure 158/89 H Pulse Oximetry 94 L 02/28/18 23:00 02/28/18 23:11 03/01/18 00:00 Temperature 98.7 F Pulse Rate 66 65 73 Respiratory Rate 18 Blood Pressure 145/78 H Pulse Oximetry 95 03/01/18 01:00 03/01/18 02:00 03/01/18 03:00 Temperature Pulse Rate 60 63 64 Respiratory Rate Blood Pressure Pulse Oximetry 03/01/18 03:27 03/01/18 04:00 03/01/18 05:00 Temperature 99.2 F Pulse Rate 73 68 77 Respiratory Rate 18 Blood Pressure 149/75 H Pulse Oximetry 94 L 03/01/18 06:00 03/01/18 07:00 03/01/18 08:00 Temperature 99.8 F H Pulse Rate 57 L 75 63 Respiratory Rate 18 Blood Pressure 165/81 H Pulse Oximetry 95 03/01/18 09:00 03/01/18 10:00 03/01/18 10:35 Temperature Pulse Rate 62 61 Respiratory Rate Blood Pressure Pulse Oximetry 94 L 03/01/18 11:00 03/01/18 12:00 03/01/18 13:00 Temperature 98.5 F Pulse Rate 68 62 61 Respiratory Rate 18 Blood Pressure 131/65 Pulse Oximetry 96 Intake & Output 02/28/18 03/01/18 03/01/18 18:59 06:59 18:59 Intake Total 30 / 30 960 / 960 1000 / 1000 Output Total 500 / 500 775 / 775 Balance -470 / -470 185 / 185 1000 / 1000 Weight 83.7 kg Intake: IV 600 / 600 1000 / 1000 NS Inj 1,000 ML @ 100 mls/hr IV 600 / 600 .CONT .Q10H TELLO Rx#:[id number] Sodium Chloride 23.4% Inj 154 1000 / 1000 MEQ In D10W Inj 1,000 ML @ 50 mls/hr IV.SIG .[id number] TELLO Rx#: [id number] Oral 360 / 360 Output: Urine 500 / 500 775 / 775 Other: Date of Last Bowel Movement 02/27/18 02/27/18 Narrative: GENERAL: Alert, oriented 3, NAD. SKIN: Warm and dry. HEAD: Normocephalic. EYES: No scleral icterus. No injection or drainage. NECK: Supple, trachea midline. No JVD or lymphadenopathy. CARDIOVASCULAR: Regular rate and rhythm without murmurs, gallops, or rubs. RESPIRATORY: Breath sounds equal bilaterally. No accessory muscle use. GASTROINTESTINAL: Abdomen soft, non-tender, nondistended. MUSCULOSKELETAL: No cyanosis, or edema. BACK: Nontender without obvious deformity. No CVA tenderness. Results Procedures completed during hospitalization: for LHC and permacath placement Labs on day of discharge: Labs from last 24 hours 03/01/18 03/01/18 03/01/18 12:08 07:54 05:34 WBC RBC Hgb Hct MCV MCH MCHC RDW Plt Count MPV Prelim Diff (Auto) Neut % (Auto) Lymph % (Auto) [place] % (Auto) Eos % (Auto) Baso % (Auto) Neut # (Auto) Lymph # (Auto) [place] # (Auto) Eos # (Auto) Baso # (Auto) WBC Differential Diff Scan Differential Comment Ovalocytes Acanthocytes (Spur) Hematology Comments Sodium 141 Potassium 4.3 Chloride 109 H Carbon Dioxide 19.7 L Anion Gap 12 BUN 65 H Creatinine 4.81 H Estimated GFR 14 L POC Glucose 177 H 224 H Random Glucose 171 H Calcium 8.3 L Phosphorus 3.7 03/01/18 02/28/18 02/28/18 05:34 20:55 17:18 WBC 9.1 RBC 3.80 L Hgb 9.0 L Hct 28.6 L MCV 75.3 L MCH 23.6 L MCHC 31.3 L RDW 18.4 H Plt Count 165 MPV 11.4 H Prelim Diff (Auto) Slide review pending Neut % (Auto) 82.6 H Lymph % (Auto) 10.3 [place] % (Auto) 6.3 Eos % (Auto) 0.3 Baso % (Auto) 0.5 Neut # (Auto) 7.5 Lymph # (Auto) 0.9 L [place] # (Auto) 0.6 Eos # (Auto) 0.0 Baso # (Auto) 0.0 WBC Differential . Diff Scan Auto diff confirmed Differential Comment . Ovalocytes 1+ H Acanthocytes (Spur) 1+ H Hematology Comments Sodium Potassium Chloride Carbon Dioxide Anion Gap BUN Creatinine Estimated GFR POC Glucose 241 H 136 H Random Glucose Calcium Phosphorus - Impressions ITS Impressions Chest X-Ray 02/27/18 03:57 CONCLUSION: Cardiomegaly with probable interstitial edema and small bilateral pleural effusions. No pneumothorax. Discharge Plan - Discharge Disposition Patient Disposition: Discharge Home - Discharge Condition Condition: Good - Discharge Order Discharge Orders: Discharge Order (Routine); Ordered 03/01/18 Ordered By: Lenard Lancaster Cardiology Clear for Discharge (Routine); Ordered 03/01/18 Ordered By: Ramon Manley - Discharge Details Anticipated Discharge Date: 03/01/18 - Physicians Team Primary Care Provider: Primary Care Physici,No Attending Provider: Lenard Lancaster Other Providers: Ramon Manley MD ; Darnell Callahan MD
== END 2018-03-01 15:05 | disposition home or self-care (01) ==
LOC: NEPE 03:12 → NEDA 06:30 → NEPGCP 09:23 → HCIS 18:47
PROVIDERS: ADMIT Hospitalist; ATTEND Hospitalist